=== PATIENT | female | born 1955 | race Caucasian/White ===

== ENCOUNTER → 2016-04-08 | Outpatient (CLI) | payer OTHER ==
[~2016-04-08] MED LIST: ACET-1256 PO; AMLO-110 PO; CHOL100010 PO; CHOL1TAB2 PO; CLX/20 PO; CLX40 PO; CYAN100T PO; CYAN1TAB18 PO; HYDR12.55 PO; KLN1X PO; KLN5X PO; LPT/20 PO; MECL1TAB42 PO; OYST500T47 PO
[2016-04-08 17:11] LABS: BASO % 0.4 %; BASO ABS # 0.03 K/uL (0-0.2); COMPLETE YES; EOS % 1.8 %; HEMATOCRIT 43.2 % (37-47); IG% 0.3 %; LYMPH % 29.4 %; LYMPH ABS # 2.35 K/uL (1.2-3.4); MEAN CELL VOLUME 86.6 fL (80-100); MEAN CORPUSCULAR HEMOGLOBIN 29.5 pg (25-34); MEAN PLATELET VOLUME 9.7 fL (7.4-10.4); MONO % 7.6 %; NEUT % 60.5 %; PLATELET COUNT 273 K/uL (130-400); RED BLOOD COUNT 4.99 M/uL (4.2-5.4); WHITE BLOOD COUNT 7.98 K/uL (4.8-10.8)
[2016-04-08 17:27] LABS: ALT/SGPT 28 U/L (12-78); AST/SGOT 15 U/L (15-37); BLOOD UREA NITROGEN 20 mg/dl (7-18); BUN/CREATININE RATIO 18.6 (10-20); CARBON DIOXIDE 29 mmol/L (21-32); CHLORIDE 105 mmol/L (98-107); GLUCOSE 120 mg/dl (70-99); POTASSIUM 3.8 mmol/L (3.5-5.1); SODIUM 143 mmol/L (136-145)
[2016-04-08 17:37] LABS: ALKALINE PHOSPHATASE 85 U/L (45-117)
[2016-04-08 18:32] LABS: LYME DISEASE AB IGG NEG (NEG); LYME DISEASE AB IGM NEG (NEG)
[2016-04-09 07:05] LABS: ESTIMATED AVERAGE GLUCOSE 131 mg/dl; HA1C FLAG Normal (Normal)
--- NOTE | 2016-04-15 09:39 | CODING QUERY MEDICAL NECESSITY ---
SUPPORTING DIAGNOSIS NEEDED Dr. Domingo, A supporting diagnosis is required for the test/procedure performed on this patient in order for us to be reimbursed by the patient's insurance. Please provide a supporting diagnosis for the following test/procedure listed below next to the test name along with your signature. *If there is no additional diagnosis for this patient that would support the following test/procedure please document that below next to the test/procedure. Test(s)/Procedure(s) that require a supporting diagnosis: * ([id number]) B12 VITAMIN LEVEL DIAGNOSIS: DATE OF SERVICE: 04/08/16 Provider Signature: Date: Thank you Mykel Rollins [facility] Information Management Once completed, please kindly fax back to [phone] For questions please call [phone]
== END | disposition home or self-care (01) ==
LOC: C.LABBC 14:18
PROVIDERS: ATTEND Internal Medicine Geriatric Medicine
DX: I10 Essential (primary) hypertension (principal); G62.9 Polyneuropathy, unspecified; F32.9 Major depressive disorder, single episode, unspecified; E78.5 Hyperlipidemia, unspecified; K76.0 Fatty (change of) liver, not elsewhere classified; E55.9 Vitamin D deficiency, unspecified; S32.010A Wedge compression fracture of first lumbar vertebra, initial encounter for closed fracture; M81.0 Age-related osteoporosis without current pathological fracture; E11.29 Type 2 diabetes mellitus with other diabetic kidney complication; I67.9 Cerebrovascular disease, unspecified; X58.XXXA Exposure to other specified factors, initial encounter; R26.9 Unspecified abnormalities of gait and mobility

== ENCOUNTER → 2016-05-07 | Outpatient (CLI) | payer OTHER ==
--- NOTE | 2016-05-07 16:18 | DIAGNOSTIC IMAGING REPORT ---
LEFT ANKLE MIN 3 VIEWS ROUTINE CLINICAL HISTORY: Left ankle pain trauma COMPARISON: None. DISCUSSION: Generalized soft tissue edema. Tiny avulsion tip distal fibula. Ankle mortise is aligned anatomically. IMPRESSION: Tiny avulsion tip distal fibula. Generalized soft tissue edema. Electronically signed by: Bijan Person M.D. 05/07/2016 4:16 PM Dictated Date/Time: 05/07/2016 4:15 PM
== END | disposition home or self-care (01) ==
LOC: C.RADBC 15:52
PROVIDERS: ATTEND Internal Medicine Geriatric Medicine
DX: S82.832A Other fracture of upper and lower end of left fibula, initial encounter for closed fracture (principal); X58.XXXA Exposure to other specified factors, initial encounter

== ENCOUNTER → 2016-08-11 | Outpatient (CLI) | payer OTHER ==
--- NOTE | 2016-08-12 12:58 | MAMMOGRAPHY REPORT ---
BILATERAL DIGITAL SCREENING MAMMOGRAM TOMOSYNTHESIS WITH CAD: 08/11/2016 CLINICAL HISTORY: Routine screening. Patient has no complaints. TECHNIQUE: Breast tomosynthesis in addition to standard 2D mammography was performed. Current study was also evaluated with a Computer Aided Detection (CAD) system. COMPARISON: Comparison is made to exams dated: 08/08/2015 mammogram, 01/23/2015 mammogram, 01/19/2014 mammogram, 12/26/2012 mammogram, 11/16/2011 mammogram, and 10/31/2010 mammogram - [facility]. BREAST COMPOSITION: There are scattered areas of fibroglandular density in both breasts. FINDINGS: There is expected focal architectural distortion and a central dystrophic calcification in the upper outer quadrant of the right breast, at the site of prior excisional biopsy. There is a s table focal asymmetry in the lower inner posterior left breast, fluctuating in size on prior mammogr ams but very similar in appearance to the 10/25/2009 exam, therefore likely benign. Scattered benig n-appearing calcifications. No new suspicious mass, architectural distortion or cluster of microcal cifications is seen. IMPRESSION: ACR BI-RADS CATEGORY 1: NEGATIVE There is no mammographic evidence of malignancy. A 1 year screening mammogram is recommended. The p atient will receive written notification of the results. Approximately 10% of breast cancers are not detected with mammography. A negative mammographic repor t should not delay biopsy if a clinically suggestive mass is present. Marylu Cross M.D. ay/:08/11/2016 16:42:41 Netsuite Developer: Celi TUBBS(Raven)(Kirsty)(JAIME), [facility] letter sent: Normal 1/2 BI-RADS Code: ACR BI-RADS Category 1: Negative
== END | disposition home or self-care (01) ==
LOC: C.MAMM 11:42
PROVIDERS: ATTEND Internal Medicine Geriatric Medicine
DX: Z12.31 Encounter for screening mammogram for malignant neoplasm of breast (principal)

== ENCOUNTER → 2016-08-13 | Outpatient (CLI) | payer OTHER ==
--- NOTE | 2016-08-13 15:19 | DIAGNOSTIC IMAGING REPORT ---
KUB CLINICAL HISTORY: Nausea and vomiting. COMPARISON STUDY: CT of the abdomen and pelvis April 03, 2014. FINDINGS: There are cholecystectomy clips. The bowel gas pattern is normal. Pelvic calcifications reflect phleboliths. There is a moderate amount of stool within the colon. IMPRESSION: No evidence of a bowel obstruction. Electronically signed by: Eyal Whitaker M.D. 08/13/2016 3:18 PM Dictated Date/Time: 08/13/2016 3:17 PM
--- NOTE | 2016-08-13 15:30 | DIAGNOSTIC IMAGING REPORT ---
CHEST 2 VIEWS ROUTINE HISTORY: Generalized ABDOMEN PAIN AND VOMITING COMPARISON: None. FINDINGS: The lungs are clear. Cardiac silhouette is normal in size. No pleural effusions. No pneumothorax. Cholecystectomy. Old compression deformity at L1. IMPRESSION: No acute process. Electronically signed by: Jean Orlando M.D. 08/13/2016 3:28 PM Dictated Date/Time: 08/13/2016 3:27 PM
[2016-08-13 17:23] LABS: BASO % 0.2 %; BASO ABS # 0.02 K/uL (0-0.2); COMPLETE YES; EOS % 1.5 %; HEMATOCRIT 44.5 % (37-47); IG% 0.1 %; LYMPH % 24.8 %; LYMPH ABS # 2.16 K/uL (1.2-3.4); MEAN CELL VOLUME 86.9 fL (80-100); MEAN CORPUSCULAR HEMOGLOBIN 29.5 pg (25-34); MEAN CORPUSCULAR HGB CONC 33.9 g/dl (32-36); MEAN PLATELET VOLUME 9.2 fL (7.4-10.4); NEUT % 67.4 %; PLATELET COUNT 299 K/uL (130-400); RED BLOOD COUNT 5.12 M/uL (4.2-5.4); WHITE BLOOD COUNT 8.71 K/uL (4.8-10.8)
[2016-08-13 17:26] LABS: URINE APPEARANCE TURBID (CLEAR); URINE BILIRUBIN NEG (NEG); URINE COLOR YELLOW; URINE NITRITE NEG (NEG); URINE PH 7.5 (4.5-7.5); URINE SPECIFIC GRAVITY 1.019 (1.000-1.030); UROBILINOGEN NEG (NEG)
[2016-08-13 17:29] LABS: MANUAL MICROSCOPIC REQUIRED? NO; REVIEW REQ? NO
[2016-08-13 17:44] LABS: ALT/SGPT 72 U/L (12-78); AMYLASE 52 U/L (25-115); AST/SGOT 29 U/L (15-37); BLOOD UREA NITROGEN 19 mg/dl (7-18); BUN/CREATININE RATIO 15.5 (10-20); CARBON DIOXIDE 31 mmol/L (21-32); CHLORIDE 107 mmol/L (98-107); GLUCOSE 125 mg/dl (70-99); POTASSIUM 3.5 mmol/L (3.5-5.1); SODIUM 144 mmol/L (136-145)
[2016-08-13 17:45] LABS: ALKALINE PHOSPHATASE 96 U/L (45-117)
--- NOTE | 2016-08-19 07:48 | CODING QUERY MEDICAL NECESSITY ---
CQSUPPORTING DIAGNOSIS NEEDED A supporting diagnosis is required for the test/procedure performed on this patient in order for us to be reimbursed by the patient's insurance. Please provide a supporting diagnosis for the following test/procedure listed below next to the test name along with your signature. *If there is no additional diagnosis for this patient that would support the following test/procedure please document that below next to the test/procedure. Test(s)/Procedure(s) that require a supporting diagnosis: DOS 08/13/16 URINE CULTURE TEST ORDERED BY RIP LÓPEZ Provider Signature: Date: Thank you Zabrina Valverde Health Information Management Once completed, please kindly fax back to [phone] For questions please call [phone]
== END | disposition home or self-care (01) ==
LOC: C.RADBC 14:37
PROVIDERS: ATTEND Physician Assistant
DX: R11.2 Nausea with vomiting, unspecified (principal); R50.9 Fever, unspecified

== ENCOUNTER 2016-09-11 18:15 | Emergency (ER) | payer OTHER ==
[~2016-09-11] VITALS: Ht 152.4 cm; Wt 80.0 kg
[~2016-09-11 18:15] MED LIST changes: -CHOL1TAB2 PO; -CLX40 PO; -CYAN100T PO; -CYAN1TAB18 PO; -HYDR12.55 PO; -KLN1X PO; -MECL1TAB42 PO
[2016-09-11 18:35] VITALS: Ht 152.4 cm; Wt 80.0 kg
[2016-09-11 18:51] VITALS: O2SAT 97
[2016-09-11] MEDS ORDERED: SODIUM CHLORIDE 0.9% 1000ML 1,000 ML IV STA (19:03)
[2016-09-11 19:12] LABS: BASO % 0.2 %; BASO ABS # 0.02 K/uL (0-0.2); COMPLETE YES; EOS % 1.2 %; HEMATOCRIT 46.1 % (37-47); IG% 0.3 %; LYMPH % 29.7 %; LYMPH ABS # 2.63 K/uL (1.2-3.4); MEAN CELL VOLUME 86.5 fL (80-100); MEAN CORPUSCULAR HEMOGLOBIN 28.9 pg (25-34); MEAN CORPUSCULAR HGB CONC 33.4 g/dl (32-36); MEAN PLATELET VOLUME 8.9 fL (7.4-10.4); MONO % 6.8 %; NEUT % 61.8 %; PLATELET COUNT 275 K/uL (130-400); RED BLOOD COUNT 5.33 M/uL (4.2-5.4); WHITE BLOOD COUNT 8.85 K/uL (4.8-10.8)
[2016-09-11 19:21] LABS: PROTHROMBIN TIME (PATIENT) 10.9 SECONDS (9.0-12.0)
--- NOTE | 2016-09-11 19:21 | DIAGNOSTIC IMAGING REPORT ---
CHEST ONE VIEW PORTABLE CLINICAL HISTORY: Left frontal/temporal pain/spasm. Febrile COMPARISON STUDY: No previous studies for comparison. FINDINGS: The bones soft tissues and hemidiaphragms are normal. The cardiomediastinal silhouette is normal. The lungs are clear. The pulmonary vasculature is normal. IMPRESSION: Negative chest. Electronically signed by: Bijan Person M.D. 09/11/2016 7:19 PM Dictated Date/Time: 09/11/2016 7:19 PM
--- NOTE | 2016-09-11 19:24 | DIAGNOSTIC IMAGING REPORT ---
HEAD CT NONCONTRAST CT DOSE: 537.48 mGy.cm HISTORY: Mental status change Left frontal/temporal pain/spasm. Febrile TECHNIQUE: Multiaxial CT images of the head were performed without the use of intravenous contrast. Comparison: None. Findings: The paranasal sinuses and mastoid air cells are clear. The calvarium and skull base are intact. The ventricles and sulci are within normal limits. There is no mass, hematoma, midline shift, or acute infarct. Impression: No acute intracranial abnormality. Electronically signed by: Bijan Person M.D. 09/11/2016 7:22 PM Dictated Date/Time: 09/11/2016 7:22 PM
[2016-09-11 19:26] LABS: URINE APPEARANCE CLEAR (CLEAR); URINE BILIRUBIN NEG (NEG); URINE COLOR YELLOW; URINE EPITHELIAL CELL AUTO >30 /lpf (0-5); URINE NITRITE NEG (NEG); URINE PH 7.5 (4.5-7.5); URINE SPECIFIC GRAVITY 1.019 (1.000-1.030); UROBILINOGEN NEG (NEG); ZZUR CULT IF INDIC CLEAN CATCH YES
[2016-09-11 19:30] LABS: ALT/SGPT 44 U/L (12-78); BLOOD UREA NITROGEN 18 mg/dl (7-18); BUN/CREATININE RATIO 14.7 (10-20); CALCIUM 9.2 mg/dl (8.5-10.1); CARBON DIOXIDE 30 mmol/L (21-32); CHLORIDE 104 mmol/L (98-107); GLUCOSE 122 mg/dl (70-99); MAGNESIUM 2.4 mg/dl (1.8-2.4); POTASSIUM 3.4 mmol/L (3.5-5.1); SODIUM 141 mmol/L (136-145)
[2016-09-11 19:33] LABS: MANUAL MICROSCOPIC REQUIRED? NO; REVIEW REQ? YES; SULFASALICYLIC ACID NEG (NEG)
[2016-09-11 19:39] LABS: ALB/GLOB RATIO 1.1 (0.9-2); ALKALINE PHOSPHATASE 85 U/L (45-117); AST/SGOT 22 U/L (15-37)
[2016-09-11 20:04] LABS: LYME DISEASE AB IGG NEG (NEG); LYME DISEASE AB IGM NEG (NEG)
[2016-09-11] MEDS ORDERED: KLN1X PO (20:23)
[2016-09-11] MEDS ORDERED: HYDR12.55 PO (20:23)
[2016-09-11] MEDS ORDERED: CHOL1TAB2 PO (20:23)
[2016-09-11] MEDS ORDERED: CYAN100T PO (20:23)
[2016-09-11] MEDS ORDERED: CLX40 PO (20:23)
[2016-09-11 20:46] VITALS: TEMP 37.2; O2SAT 94
--- NOTE | 2016-09-11 21:38 | EMERGENCY ROOM VISIT NOTE ---
ED Visit Note First contact with patient: 18:50 I have personally seen and evaluated the patient with the physician assistant chief of police. I agree with the diagnostic/management decisions and have personally been involved in these decisions and agree with the diagnosis.
[2016-09-11 22:00] VITALS: PULSE 98
[2016-09-11] MEDS ORDERED: CIPROFLOXACIN HCL 0.3% OP SOLN 2.5 ML BTL OP STA (22:02)
--- NOTE | 2016-09-11 22:02 | EMERGENCY ROOM VISIT NOTE ---
History First contact with patient: 18:50 Chief Complaint: HEAD PAIN Stated Complaint: PAINFUL SPASMS ON LT SIDE OF HEAD, FOREHEAD PAIN History of Present Illness The patient is a 61 year old female who presents to the Emergency Room via taxi with complaints of "painful spasms on left side of head, forehead pain". The patient states that yesterday morning, she developed pain in the left side of her head near the area for for head and left temporal region. She notes that this will come in spasms, and last a few seconds. She rates the pain as a 7/ 10. She is unable to count number spasm she has had since the initial event. She's never had this in the past. 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 She notes minimal nausea and vomiting each morning but they go away. She denies any chest pain, shortness of breath, neck pain, recent medicine changes, chills. She states that she feels slightly warm, but no fevers. She was told that she had a slight fever on her last doctor's visit. Review of Systems A complete 10-point Review of Systems was discussed with the patient, with pertinent positives and negatives listed in the History of Present Illness. All remaining Review of Systems questions can be considered negative unless otherwise specified. Past Medical/Surgical History Medical Problems: (1) Asthma, Unspecified (2) Cholelith W Cholecys Nec (3) Cholelithiasis Nos (4) Diab Addie Wo Compl, Type Ii Or Unspec Type, Not Uncntrld (5) Diverticulosis Colon (W/O Ment Of Hemorrhage) (6) Hypertension Nos Social History Smoking Status: Never Smoker Alcohol Use: none Drug Use: none Marital Status: single Housing Status: lives alone Occupation Status: disabled Current/Historical Medications Scheduled Amlodipine (Norvasc), 5 MG PO QAM Atorvastatin (Atorvastatin Calcium), 20 MG PO HS Cholecalciferol (Vitamin D-3), 1,000 UNIT PO QAM Citalopram (Citalopram Hydrobromide), 40 MG PO QAM Clonazepam (Clonazepam), 1 MG PO HS Cyanocobalamin (Vitamin B-12), Unknown Dose PO DAILY Hydrochlorothiazide (Hydrochlorothiazide), 12.5 MG PO QAM Oyster Shell (Calcium), 500 MG PO HS Scheduled PRN Acetaminophen (Tylenol), 500 MG PO BID PRN for Pain Allergies Coded Allergies: Fluoride (Verified Allergy, Unknown, 09/11/16) Codeine (Verified Adverse Reaction, Unknown, N&V, 09/11/16) Uncoded Allergies: [id number] (Allergy, Unknown, N V, 05/27/15) [id number] (Allergy, Unknown, 05/27/15) Physical Exam Vital Signs Date Time Temp Pulse Resp B/P (MAP) Pulse Ox O2 Delivery O2 Flow Rate FiO2 09/11/16 22:18 167/94 09/11/16 22:00 98 21 09/11/16 21:30 101 21 09/11/16 21:00 95 19 09/11/16 20:46 37.2 94 20 162/87 94 Room Air 09/11/16 19:15 37.5 104 20 110/67 97 Room Air 09/11/16 19:06 101 09/11/16 18:51 97 Room Air 09/11/16 18:35 38.2 102 20 192/96 98 Room Air Physical Exam VITAL SIGNS - Vital signs and nursing notes were reviewed. Afebrile, hypertensive at 192/96, tachycardic at a rate of 102 bpm, was saturating on room air 98%. GENERAL -61-year-old female appearing her stated age who is in no acute distress. Communicates well with provider and answers questions appropriately. SKIN - Without rashes. No petechial rashes. HEAD - NC/AT. EYES - PERRL with EOMI bilaterally. The left eye is shut, with left-sided facial droop. This is consistent with past medical history of Leary's palsy. Sclera anicteric. Palpebral conjunctiva pink and moist with no injection noted. EARS - No deformities of external structures noted on gross examination bilaterally. No pain elicited with palpation of the tragus bilaterally. External auditory canals without discharge or otorrhea. Tympanic membranes pearly mireles without retraction or bulging. No fluid or purulent material visualized behind the TM. Handle of malleus, umbo, cone of light, pars tensa/ flaccid all easily visualized. NOSE - Midline and without cyanosis. No epistaxis or purulent drainage noted. Septum midline without deviation or septal hematoma noted. MOUTH/OROPHARYNX - Without perioral cyanosis. Buccal mucosa pink and moist and without leukoplakia. The posterior pharynx is unremarkable NECK - Neck with FROM. Supple to palpation. No meningismus LUNGS - Chest wall symmetric without accessory muscle use, intercostals retractions, or central cyanosis. Normal vesicular breath sounds CTA B/L. No wheezes, rales, or rhonchi appreciated. CARDIAC - RRR with S1/S2. No murmur, rubs, or gallops appreciated. ABDOMEN - Abdominal contour without pulsations or visible masses. BS normoactive all four quadrants. No tenderness, palpable masses, hepatosplenomegaly, or ascites noted. EXTREMITIES - No clubbing or peripheral cyanosis. No pretibial edema present. + 5/5 strength noted in UE/LE bilaterally. NEUROLOGIC - Cranial nerves II through XII grossly intact, other than a left seventh nerve palsy. Sensory intact to light touch throughout. PSYCH - A&O Pt is very pleasant and interacts well with examiner. An Automated Tonometer was utilized to obtain bilateral orbital pressures. The pressures in the LEFT eye were found to be 23. The pressures in the RIGHT eye were found to be 12. Patient tolerated the procedure well and no complications were met. Slit Lamp Examination was performed of the left eye(s). Alcaine drops were applied to the affected eye(s) for proper anesthetization. The affected eye(s) were stained with Fluorescein stain to precipitate adequate visualization of any conjunctival/scleral excoriations or ulcers. The patient's face was comfortably rested on the chin guard of the slit lamp apparatus. The lights were dimmed and the affected eye(s) were thoroughly examined under microscopy using the blue light. A small amount of uptake was present on the medial aspect in the vertical plane that was linear in nature. Additionally, the eye(s ) were examined under microscopy using the regular light. Negative Martnia sign. No herpetic lesion within the eye. Close examination revealed no emergent process. Patient tolerated the procedure well and no complications were met. Medical Decision & Procedures ER Provider Diagnostic Interpretation: CHEST ONE VIEW PORTABLE CLINICAL HISTORY: Left frontal/temporal pain/spasm. Febrile COMPARISON STUDY: No previous studies for comparison. FINDINGS: The bones soft tissues and hemidiaphragms are normal. The cardiomediastinal silhouette is normal. The lungs are clear. The pulmonary vasculature is normal. IMPRESSION: Negative chest. Electronically signed by: Bijan Person M.D. 09/11/2016 7:19 PM Dictated Date/Time: 09/11/2016 7:[address] CT DOSE: 537.48 mGy.cm HISTORY: Mental status change Left frontal/temporal pain/spasm. Febrile TECHNIQUE: Multiaxial CT images of the head were performed without the use of intravenous contrast. Comparison: None. Findings: The paranasal sinuses and mastoid air cells are clear. The calvarium and skull base are intact. The ventricles and sulci are within normal limits. There is no mass, hematoma, midline shift, or acute infarct. Impression: No acute intracranial abnormality. Electronically signed by: Bijan Person M.D. 09/11/2016 7:22 PM Dictated Date/Time: 09/11/2016 7:22 PM Laboratory Results 09/11/16 18:55 Red Blood Count 5.33, Mean Corpuscular Volume 86.5, Mean Corpuscular Hemoglobin 28.9, Mean Corpuscular Hemoglobin Concent 33.4, Mean Platelet Volume 8.9, Neutrophils (%) (Auto) 61.8, Lymphocytes (%) (Auto) 29.7, Monocytes (%) (Auto) 6.8, Eosinophils (%) (Auto) 1.2, Basophils (%) (Auto) 0.2, Neutrophils # (Auto) 5.46, Lymphocytes # (Auto) 2.63, Monocytes # (Auto) 0.60, Eosinophils # (Auto) 0.11, Basophils # (Auto) 0.02 09/11/16 18:55 Test 09/11/16 18:55 09/11/16 19:01 09/11/16 19:02 White Blood Count 8.85 K/uL (4.8-10.8) Red Blood Count 5.33 M/uL (4.2-5.4) Hemoglobin 15.4 g/dL (12.0-16.0) Hematocrit 46.1 % (37-47) Mean Corpuscular Volume 86.5 fL (80-100) Mean Corpuscular Hemoglobin 28.9 pg (25-34) Mean Corpuscular Hemoglobin Concent 33.4 g/dl (32-36) Platelet Count 275 K/uL (130-400) Mean Platelet Volume 8.9 fL (7.4-10.4) Neutrophils (%) (Auto) 61.8 % Lymphocytes (%) (Auto) 29.7 % Monocytes (%) (Auto) 6.8 % Eosinophils (%) (Auto) 1.2 % Basophils (%) (Auto) 0.2 % Neutrophils # (Auto) 5.46 K/uL (1.4-6.5) Lymphocytes # (Auto) 2.63 K/uL (1.2-3.4) Monocytes # (Auto) 0.60 K/uL (0.11-0.59) Eosinophils # (Auto) 0.11 K/uL (0-0.5) Basophils # (Auto) 0.02 K/uL (0-0.2) RDW Standard Deviation 40.9 fL (36.4-46.3) RDW Coefficient of Variation 12.8 % (11.5-14.5) Immature Granulocyte % (Auto) 0.3 % Immature Granulocyte # (Auto) 0.03 K/uL (0.00-0.02) Erythrocyte Sedimentation Rate 9 mm/hr (0-21) Prothrombin Time 10.9 SECONDS (9.0-12.0) Prothromb Time International Ratio 1.0 (0.9-1.1) Activated Partial Thromboplast Time 26.9 SECONDS (21.0-31.0) Partial Thromboplastin Ratio 1.0 Anion Gap 7.0 mmol/L (3-11) Est Creatinine Clear Calc Drug Dose 46.1 ml/min Estimated GFR () 56.5 Estimated GFR (Non- 48.7 BUN/Creatinine Ratio 14.7 (10-20) Calcium Level 9.2 mg/dl (8.5-10.1) Magnesium Level 2.4 mg/dl (1.8-2.4) Total Bilirubin 0.2 mg/dl (0.2-1) Aspartate Amino Transf (AST/SGOT) 22 U/L (15-37) Alanine Aminotransferase (ALT/SGPT) 44 U/L (12-78) Alkaline Phosphatase 85 U/L (45-117) Total Creatine Kinase 79 U/L (26-192) Creatine Kinase MB < 0.5 ng/ml (0.5-3.6) Creatine Kinase MB Ratio (0-3.0) C-Reactive Protein 0.70 mg/dl (0-0.29) Total Protein 7.6 gm/dl (6.4-8.2) Albumin 4.0 gm/dl (3.4-5.0) Globulin 3.6 gm/dl (2.5-4.0) Albumin/Globulin Ratio 1.1 (0.9-2) Thyroid Stimulating Hormone (TSH) 1.990 uIu/ml (0.300-4.500) Lyme Disease IgG Antibody NEG (NEG) Lyme Disease IgM Antibody NEG (NEG) Urine Color YELLOW Urine Appearance CLEAR (CLEAR) Urine pH 7.5 (4.5-7.5) Urine Specific [place] 1.019 (1.000-1.030) Urine Protein NEG (NEG) Urine Glucose (UA) NEG (NEG) Urine Ketones NEG (NEG) Urine Occult Blood NEG (NEG) Urine Nitrite NEG (NEG) Urine Bilirubin NEG (NEG) Urine Urobilinogen NEG (NEG) Urine Leukocyte Esterase MODERATE (NEG) Urine WBC (Auto) 10-30 /hpf (0-5) Urine RBC (Auto) 0-4 /hpf (0-4) Urine Hyaline Casts (Auto) 0 /lpf (0-5) Urine Epithelial Cells (Auto) >30 /lpf (0-5) Urine Bacteria (Auto) NEG (NEG) Urine Renal Epithelial Cells 0-5 /lpf (0-5) Bedside Lactic Acid Venous 0.97 mmol/L (0.90-1.70) Medications Administered Medications (Trade) Dose Ordered Sig/Mo Route Start Time Stop Time Status Last Admin Dose Admin Sodium Chloride 1,000 ml @ 200 mls/hr Q5H STAT IV 09/11/16 19:03 09/12/16 00:02 09/11/16 19:03 200 MLS/HR Ciprofloxacin HCl (Ciprofloxacin 0.3% Op Soln) 2 drops NOW STAT OP 09/11/16 22:02 09/11/16 22:04 DC 09/11/16 22:15 2 DROPS Medical Decision Patient was seen and evaluated as above. After obtaining a thorough history and physical examination IV access was initiated and the above workup was performed. Patient is a healthy-appearing, but is afebrile upon presentation, hypertensive and tachycardic. Blood cultures were drawn and point care lactic acid was found to be normal. I suspect patient's hypertensive state is secondary to her pain. I personally reviewed her medication list. She presents to us today with pain in the left side of the forehead/temporal region and left eye. On examination her left eye does show a small amount of drainage. No evidence of herpetic lesion. CT scan of the head was obtained and found to be negative. An extensive workup was performed via blood work and also found to be relatively negative. CBC reveals no concerning leukocytosis or anemia. ESR normal at 9. INR and PT PTT are normal. Potassium slightly low at 3.4, random glucose at 122, [id number] lactic acid at 0.97, C- reactive protein high at 0.7. TSH within normal limits. Urine is positive for leukocytes and white blood cells, but believed to be contaminated with epithelial cells. Lyme disease negative. CT the head and chest x-ray negative. I suspect the patient is likely experiencing other mild conjunctivitis, with blepharitis and do not suspect temporal arteritis in this case. She also may be experiencing a headache. I do not suspect meningitis, sepsis however blood cultures are pending. The patient was also thoroughly evaluated by my attending. This was discussed extensively with him. At this time it was decided to place the patient on Ciloxan eyedrops, and the patient prefers to be discharged rather than staying in the hospital. Due to this is reasonable. She was given a voucher to ride home with a taxi. She was given Ciloxan eyedrops. She is to follow-up with her neurologist, family doctor and is due for an eye exam which she is aware of. She was educated upon worrisome symptoms which to return, had questions as read discharge, and was discharged home in good condition. In the evaluation and treatment of this patient, the following differential diagnoses were considered: Concussion, Contrecoup Injury, Brain Tumor, Depression, Encephalitis, Hypothyroidism, Meningitis, CVA, TIA, Migraine, Cluster Headache, Intracranial Abnormality, Intracranial Hemorrhage, Subdural Hematoma, Subarachnoid Hemorrhage, Hydrocephalus, Corneal Abrasion, Conjunctivitis, Eye Contusion, Globe Injury, Orbital Floor Injury (Blowout Fracture), Corneal Ulcer, Keratitis, Herpes Zoster Opthalmic, Blepharitis, Orbital Cellulitis, Iritis, Scleritis/Episcleritis, Uveitis, Temporal Arteritis , Subconjunctival Hemorrhage. Impression Primary Impression: Head pain Additional Impressions: Left eye pain Hypokalemia Departure Information Dispostion Home / Self-Care Condition GOOD Referrals Yann Domingo M.D. (PCP) Luis Enrique Montgomery D.O. Patient Instructions My [facility] Additional Instructions You have been treated in the Emergency Department today for your left eye pain, and left forehead pain. You have been prescribed Ciloxan eye drops. Instill 1 to 2 drops into the conjunctival sac every 2 hours while awake for 2 days and 1 to 2 drops every 4 hours while awake for the next 5 days For pain control, you can use the following [id number] medicines (if >12 yo): - Regular strength (325mg/tab) Tylenol (acetaminophen) 2 tabs every 4-6 hours as needed. Do not exceed 12 tablets in a 24 hour period. Avoid taking more than 3 grams (3000 mg) of Tylenol per day. This includes any other sources of acetaminophen you may take on a regular basis. - Regular strength (200 mg/tab) Advil (ibuprofen) 1-2 tabs every 4-6 hours as needed. Do not exceed a dose of 3200 mg per day. You should relax in a quiet, dark place for the rest of the day. You should wear sunglasses while outside for the next few days until your eyes are not as sensitive to the light. You should schedule a follow-up appointment as soon as possible with your Primary Care Provider or established Eye Doctor (Blow Molding Machine Tender) for further evaluation and treatment of your eye pain/head pain. The number for the eye doctor as listed above (Dr. Montgomery) your left eye pressure was slightly high. Please discuss this with the eye doctor.. Please also call your neurologist to schedule follow-up. Please watch for a rash on your forehead as we discussed. Return to the Emergency Department if your current symptoms worsen despite treatment course outlined above, or if you develop any of the following symptoms : intractable pain, visual disturbances, loss of vision, increased redness, swelling, drainage, or if you develop a fever. Please return to the emergency department with any new/concerning symptoms. Thank you for your time. Problem Qualifiers
[2016-09-11 22:18] VITALS: BP 167/94
[2016-11-26] MEDS ORDERED: CYAN1TAB18 PO (16:02)
== END 2016-09-11 22:20 | disposition home or self-care (01) ==
LOC: C.EDB 18:16
DX: R51 Headache (principal); H57.12 Ocular pain, left eye; E87.6 Hypokalemia; J45.909 Unspecified asthma, uncomplicated; E11.9 Type 2 diabetes mellitus without complications; I10 Essential (primary) hypertension; Z79.899 Other long term (current) drug therapy

== ENCOUNTER → 2016-09-17 | Outpatient (CLI) | payer OTHER ==
[~2016-09-17] MED LIST changes: -CHOL100010 PO; +CHOL1TAB2 PO; -CLX/20 PO; +CLX40 PO; +CYAN100T PO; +HYDR12.55 PO; +KLN1X PO; -KLN5X PO
[2016-09-17 17:36] LABS: LYME DISEASE AB IGG NEG (NEG); LYME DISEASE AB IGM NEG (NEG)
== END | disposition home or self-care (01) ==
LOC: C.LABBC 14:09
PROVIDERS: ATTEND Psychiatry & Neurology Neurology
DX: G51.3 Clonic hemifacial spasm (principal)

== ENCOUNTER → 2016-10-08 | Outpatient (CLI) | payer OTHER ==
[~2016-10-08] MED LIST changes: +CYAN1TAB18 PO; +MECL1TAB42 PO
[2016-10-08 13:23] LABS: BLOOD UREA NITROGEN 21 mg/dl (7-18)
== END ==
LOC: C.LAB 12:34
PROVIDERS: ATTEND Internal Medicine Geriatric Medicine
DX: E11.9 Type 2 diabetes mellitus without complications (principal)

== ENCOUNTER → 2016-10-12 | Outpatient (CLI) | payer OTHER ==
[~2016-10-12] MED LIST changes: +GADAVIST IV PRN
--- NOTE | 2016-10-12 11:39 | DIAGNOSTIC IMAGING REPORT ---
ABDOMEN COMBO CLINICAL HISTORY: Pancreatic cyst. COMPARISON STUDY: 11/01/2015, CT dated 04/03/2014, 2013, an 2012.. TECHNIQUE: MRI of the abdomen is performed transverse T1 and T2-weighted sequences in the axial and coronal planes. Contrast enhanced sequences were acquired following the IV administration of 12.5. FINDINGS: Lower chest: No pleural effusion is identified. The heart is normal in size. Liver: Mild fatty infiltration. Gallbladder: Surgically absent Spleen: Normal in size and signal intensity. Pancreas: Moderately compromised study due to patient respiratory and somatic motion. There appears to be slight inhomogeneity of the cystic lesion of the pancreatic head. This is felt to be related to motion artifact with signal considered uniform on the coronal images. Maximum dimension currently is 1.6 cm unchanged from the prior exam. No significant postcontrast enhancement within limitations of patient motion. No new or interval findings are present. Adrenal glands: Unremarkable. Kidneys: Small left renal cyst unchanged. No evidence for hydronephrosis. No new or interval finding. Bowel: Visualized portions of the small bowel and colon show no evidence of obstruction. Peritoneum: There is no abdominal ascites. Lymphadenopathy: None. Skeletal structures: Visualized skeletal structures times are normal marrow signal intensity. IMPRESSION: 1. Stable cystic lesion of the pancreas with no change compared to multiple prior studies. 2. No evidence for a new, interval, or progressive process. 3. Mild fatty infiltration of liver considered stable. 4. Differential considerations are unchanged compared to the prior exam The above report was generated using voice recognition software. It may contain grammatical, syntax or spelling errors. Electronically signed by: Bijan Person M.D. 10/12/2016 11:38 AM Dictated Date/Time: 10/12/2016 11:29 AM
== END | disposition home or self-care (01) ==
LOC: C.MRIBC 09:37
PROVIDERS: ATTEND Internal Medicine Geriatric Medicine
DX: K86.2 Cyst of pancreas (principal)

== ENCOUNTER 2016-11-20 11:25 | Emergency (ER) | payer OTHER ==
[~2016-11-20] VITALS: Ht 152.4 cm; Wt 80.0 kg
[~2016-11-20 11:25] MED LIST changes: -CYAN1TAB18 PO; -GADAVIST IV PRN; -MECL1TAB42 PO
[2016-11-20 11:29] VITALS: TEMP 37.1; Ht 152.4 cm; Wt 80.0 kg
[2016-11-20] MEDS ORDERED: SODIUM CHLORIDE 0.9% 500ML 500 ML IV STA (11:58)
[2016-11-20] MEDS ORDERED: MECLIZINE HCL 25 MG TAB PO STA (11:58)
[2016-11-20] MEDS ORDERED: ONDANSETRON INJ 2 MG/ML 2 ML VIAL IV STA (11:58)
[2016-11-20 12:04] LABS: BASO % 0.3 %; BASO ABS # 0.02 K/uL (0-0.2); COMPLETE YES; EOS % 1.3 %; HEMATOCRIT 46.4 % (37-47); IG% 0.4 %; LYMPH ABS # 2.01 K/uL (1.2-3.4); MEAN CELL VOLUME 85.3 fL (80-100); MEAN CORPUSCULAR HGB CONC 35.1 g/dl (32-36); MEAN PLATELET VOLUME 8.9 fL (7.4-10.4); MONO % 5.9 %; NEUT % 66.1 %; PLATELET COUNT 267 K/uL (130-400); RED BLOOD COUNT 5.44 M/uL (4.2-5.4); WHITE BLOOD COUNT 7.74 K/uL (4.8-10.8)
--- NOTE | 2016-11-20 12:04 | EMERGENCY ROOM VISIT NOTE ---
History Report prepared by Nellie: Tamiko Joiner Under the Supervision of: Dr. Piero Dillon M.D. First contact with patient: 11:50 Chief Complaint: DIZZY Stated Complaint: DIZZINESS, HEAD AND NECK PAIN, HAVING TROUBLE WALK History of Present Illness The patient is a 61 year old female who presents to the Emergency Room with complaints of persistent dizziness that began around 0800. The patient states that over the past month she has been experiencing intermittent headaches and neck pain with movement of her head. She states that this morning she woke up doing her normal routine and noticed that she was becoming dizzy with bending over. The patient states that when she walked out to get her mail, her dizziness worsened and had difficulty ambulating, noting that she was walking slower than normal. She states that she was [place] but states that her symptoms persisted. The patient states that she consulted her PCP and was told to come to the emergency department due to her symptoms. 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 The patient denies any nausea. Source of History: patient Onset: 0800 Position: other (global) Quality: other (dizziness) Timing: other (persistent) Associated Symptoms: + headache, + neck pain, No nausea Note: Associated Symptoms: walking slow, difficulty ambulating Review of Systems See HPI for pertinent positives & negatives. A total of 10 systems reviewed and were otherwise negative. Past Medical & Surgical Medical Problems: (1) Asthma, Unspecified (2) Cholelith W Cholecys Nec (3) Cholelithiasis Nos (4) Diab Addie Wo Compl, Type Ii Or Unspec Type, Not Uncntrld (5) Diverticulosis Colon (W/O Ment Of Hemorrhage) (6) Hypertension Nos Social History Smoking Status: Never Smoker Alcohol Use: none Drug Use: none Marital Status: single Housing Status: lives alone Occupation Status: disabled Current/Historical Medications Scheduled Amlodipine (Norvasc), 5 MG PO QAM Atorvastatin (Atorvastatin Calcium), 20 MG PO HS Cholecalciferol (Vitamin D-3), 1,000 UNIT PO QAM Citalopram (Citalopram Hydrobromide), 40 MG PO QAM Cyanocobalamin (Vitamin B-12), Unknown Dose PO DAILY Hydrochlorothiazide (Hydrochlorothiazide), 12.5 MG PO QAM Oyster Shell (Calcium), 500 MG PO HS Scheduled PRN Acetaminophen (Tylenol), 500 MG PO BID PRN for Pain Meclizine Hcl (Meclizine Hcl), 1 TAB PO TID PRN for Dizziness or Vertigo Allergies Coded Allergies: Fluoride (Verified Allergy, Unknown, 09/11/16) Codeine (Verified Adverse Reaction, Unknown, N&V, 09/11/16) Uncoded Allergies: [id number] (Allergy, Unknown, N V, 05/27/15) [id number] (Allergy, Unknown, 05/27/15) Physical Exam Vital Signs Date Time Temp Pulse Resp B/P (MAP) Pulse Ox O2 Delivery O2 Flow Rate FiO2 11/20/16 13:26 100 20 176/95 95 11/20/16 12:28 103 11/20/16 12:27 96 Room Air 11/20/16 12:27 96 Room Air 11/20/16 12:24 93 20 162/93 97 169/97 107 171/91 11/20/16 11:29 37.1 110 20 190/78 96 Room Air Physical Exam GENERAL: Patient is a healthy-appearing well-nourished female HEAD: Normocephalic atraumatic EYES: Ocular movements intact pupils equal and react to light OROPHARYNX mucous membranes are moist no exudates present no erythema or edema present NECK: Supple no nuchal rigidity CHEST: Good equal expansion LUNGS: Clear and equal to auscultation CARDIAC: Normal S1 and S2 ABDOMEN: Soft nontender no guarding BACK: No CVA tenderness EXTREMITIES: No pain upon palpation normal muscle strength in all groups no clubbing cyanosis or edema NEURO: Left sided facial droop that is normal. Patient is following commands and answering questions appropriately. Alert and oriented x3 Medical Decision & Procedures ER Provider Diagnostic Interpretation: Radiology results as stated below per my review and radiologist interpretation: CHEST ONE VIEW PORTABLE CLINICAL HISTORY: Dizziness. Head pain. Neck pain. COMPARISON STUDY: 09/11/2016 FINDINGS: The cardiac and mediastinal contours are normal. There is no evidence of focal pulmonary consolidation. There is no evidence of failure. No pleural effusions are visualized.[ IMPRESSION: No active disease in the chest. Electronically signed by: Negrito Hawkins M.D. 11/20/2016 12:16 PM Dictated Date/Time: 11/20/2016 12:16 PM HEAD WITHOUT CONTRAST (CT) CLINICAL HISTORY: 61 years-old Female presenting with Pt c/o dizziness. TECHNIQUE: Multidetector CT imaging of the head was performed without the use of intravenous contrast. IV contrast: None. A dose lowering technique was used consistent with the principles of ALARA (as low as reasonably achievable). COMPARISON: 09/11/2016. CT DOSE (mGy.cm): The estimated cumulative dose is 537.48 mGy.cm. 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 Ventricles and sulci normal in size. Brain parenchyma normal in appearance with preserved mireles-white differentiation. No mass effect or midline shift. No hemorrhage or acute territorial infarct. No extra-axial fluid collection. Paranasal sinuses and mastoid air cells clear. Calvarium intact. IMPRESSION: 1. No acute intracranial pathology. Electronically signed by: Ricco Suarez M.D. 11/20/2016 12:48 PM Dictated Date/Time: 11/20/2016 12:46 PM Laboratory Results 11/20/16 11:41 Red Blood Count 5.44, Mean Corpuscular Volume 85.3, Mean Corpuscular Hemoglobin 30.0, Mean Corpuscular Hemoglobin Concent 35.1, Mean Platelet Volume 8.9, Neutrophils (%) (Auto) 66.1, Lymphocytes (%) (Auto) 26.0, Monocytes (%) (Auto) 5.9, Eosinophils (%) (Auto) 1.3, Basophils (%) (Auto) 0.3, Neutrophils # (Auto) 5.12, Lymphocytes # (Auto) 2.01, Monocytes # (Auto) 0.46, Eosinophils # (Auto) 0.10, Basophils # (Auto) 0.02 11/20/16 11:41 Test 11/20/16 11:41 11/20/16 12:22 11/20/16 13:15 White Blood Count 7.74 K/uL (4.8-10.8) Red Blood Count 5.44 M/uL (4.2-5.4) Hemoglobin 16.3 g/dL (12.0-16.0) Hematocrit 46.4 % (37-47) Mean Corpuscular Volume 85.3 fL (80-100) Mean Corpuscular Hemoglobin 30.0 pg (25-34) Mean Corpuscular Hemoglobin Concent 35.1 g/dl (32-36) Platelet Count 267 K/uL (130-400) Mean Platelet Volume 8.9 fL (7.4-10.4) Neutrophils (%) (Auto) 66.1 % Lymphocytes (%) (Auto) 26.0 % Monocytes (%) (Auto) 5.9 % Eosinophils (%) (Auto) 1.3 % Basophils (%) (Auto) 0.3 % Neutrophils # (Auto) 5.12 K/uL (1.4-6.5) Lymphocytes # (Auto) 2.01 K/uL (1.2-3.4) Monocytes # (Auto) 0.46 K/uL (0.11-0.59) Eosinophils # (Auto) 0.10 K/uL (0-0.5) Basophils # (Auto) 0.02 K/uL (0-0.2) RDW Standard Deviation 39.8 fL (36.4-46.3) RDW Coefficient of Variation 12.7 % (11.5-14.5) Immature Granulocyte % (Auto) 0.4 % Immature Granulocyte # (Auto) 0.03 K/uL (0.00-0.02) Anion Gap 5.0 mmol/L (3-11) Est Creatinine Clear Calc Drug Dose 50.3 ml/min Estimated GFR () 62.8 Estimated GFR (Non- 54.1 BUN/Creatinine Ratio 17.0 (10-20) Calcium Level 9.0 mg/dl (8.5-10.1) Total Bilirubin 0.4 mg/dl (0.2-1) Direct Bilirubin < 0.1 mg/dl (0-0.2) Aspartate Amino Transf (AST/SGOT) 17 U/L (15-37) Alanine Aminotransferase (ALT/SGPT) 30 U/L (12-78) Alkaline Phosphatase 102 U/L (45-117) Total Creatine Kinase 89 U/L (26-192) Creatine Kinase MB 1.0 ng/ml (0.5-3.6) Creatine Kinase MB Ratio 1.1 (0-3.0) Troponin I < 0.015 ng/ml (0-0.045) Total Protein 7.6 gm/dl (6.4-8.2) Albumin 3.8 gm/dl (3.4-5.0) Thyroid Stimulating Hormone (TSH) 0.976 uIu/ml (0.300-4.500) Bedside Glucose 99 mg/dl (70-90) Urine Color YELLOW Urine Appearance CLEAR (CLEAR) Urine pH 8.5 (4.5-7.5) Urine Specific [place] 1.015 (1.000-1.030) Urine Protein NEG (NEG) Urine Glucose (UA) NEG (NEG) Urine Ketones NEG (NEG) Urine Occult Blood NEG (NEG) Urine Nitrite NEG (NEG) Urine Bilirubin NEG (NEG) Urine Urobilinogen NEG (NEG) Urine Leukocyte Esterase TRACE (NEG) Urine WBC (Auto) 1-5 /hpf (0-5) Urine RBC (Auto) 0-4 /hpf (0-4) Urine Hyaline Casts (Auto) 0 /lpf (0-5) Urine Epithelial Cells (Auto) 0-5 /lpf (0-5) Urine Bacteria (Auto) NEG (NEG) Labs reviewed by ED physician. Medications Administered Medications (Trade) Dose Ordered Sig/Mo Route Start Time Stop Time Status Last Admin Dose Admin Sodium Chloride 500 ml @ 999 mls/hr Q31M STAT IV 11/20/16 11:58 11/20/16 12:28 DC 11/20/16 12:33 999 MLS/HR Ondansetron HCl (Zofran Inj) 4 mg NOW STAT IV 11/20/16 11:58 11/20/16 12:00 DC 11/20/16 12:32 4 MG Meclizine HCl (Antivert Tab) 25 mg NOW STAT PO 11/20/16 11:58 11/20/16 12:00 DC 11/20/16 12:32 25 MG ECG Indication: other (dizziness) Rate (beats per minute): 106 Rhythm: sinus tachycardia Findings: PVC, no acute ischemic change ED Course 1154: Past medical records reviewed. The patient was evaluated in room C9. A complete history and physical examination was performed. 1158: Ordered Antivert Tab 25 mg PO, Zofran Inj 4 mg IV, Sodium Chloride 500 ml @ 999 mls/hr IV. 1304: I reevaluated the patient and she is feeling much better. I discussed the exam findings with her and I discussed the treatment plan. She verbalized complete understanding and agreement. She is ready to go home shortly. Medical Decision Differential diagnosis: Etiologies such as benign positional vertigo, dehydration, hypovolemia, anemia, tumor, infection, hypoglycemia, electrolyte abnormalities, cardiac sources, intracerebral event, toxicologic, neurologic, as well as others were entertained. This is a 61-year-old female who presents emergency department complaining of vertigo. The dizziness tires with movement. It also appears to be related to the patient's movement. Based on this I do feel the patient is suffering from vertigo. She was sent for CAT scan of the head which did not show any acute process. Patient was given normal saline bolus along with meclizine. Repeat examination revealed much improvement patient's symptoms. I do believe that the patient as well as to be discharged home for follow-up with her primary care physician. Patient was in agreement with the treatment plan. Medication Reconcilliation Current Medication List: was personally reviewed by me Blood Pressure Screening Patient's blood pressure: Elevated blood pressure Blood pressure disposition: Referred to PCP Impression Primary Impression: Vertigo Scribe Attestation The scribe's documentation has been prepared under my direction and personally reviewed by me in its entirety. I confirm that the note above accurately reflects all work, treatment, procedures, and medical decision making performed by me. Departure Information Dispostion Home / Self-Care Prescriptions Meclizine Hcl (MECLIZINE HCL) 25 Mg Tab 1 TAB PO TID Y for Dizziness or Vertigo for 10 Days, #30 TAB Prov: Piero Dillon MD 11/20/16 Referrals Yann Domingo M.D. (PCP) Forms HOME CARE DOCUMENTATION FORM, IMPORTANT VISIT INFORMATION, School Instructions, Work Instructions Patient Instructions ED BPV Vertigo, Hypertension Dc, [facility] Additional Instructions You were found to have an elevated blood pressure today (>120 sytolic or >90 diastolic). Per medicare guidelines, you need to follow up with this blood pressure screening with your Primary Care Physician (PCP). For a new PCP call [phone]. You have been examined and treated today on an emergency basis only. This is not a substitute for, or an effort to provide, complete comprehensive medical care. It is impossible to recognize and treat all injuries or illnesses in a single emergency department visit. It is therefore important that you follow up closely with Dr Domingo. Call as soon as possible for an appointment. Thank you for your time and consideration. I look forward to speaking with you again soon. Please don't hesitate to call us if you have any questions.
--- NOTE | 2016-11-20 12:17 | DIAGNOSTIC IMAGING REPORT ---
CHEST ONE VIEW PORTABLE CLINICAL HISTORY: Dizziness. Head pain. Neck pain. COMPARISON STUDY: 09/11/2016 FINDINGS: The cardiac and mediastinal contours are normal. There is no evidence of focal pulmonary consolidation. There is no evidence of failure. No pleural effusions are visualized.[ IMPRESSION: No active disease in the chest. Electronically signed by: Negrito Hawkins M.D. 11/20/2016 12:16 PM Dictated Date/Time: 11/20/2016 12:16 PM
[2016-11-20 12:22] LABS: ALT/SGPT 30 U/L (12-78); AST/SGOT 17 U/L (15-37); BLOOD UREA NITROGEN 19 mg/dl (7-18); CARBON DIOXIDE 30 mmol/L (21-32); CHLORIDE 105 mmol/L (98-107); GLUCOSE 114 mg/dl (70-99); POTASSIUM 3.7 mmol/L (3.5-5.1); SODIUM 140 mmol/L (136-145)
[2016-11-20 12:27] VITALS: O2SAT 96
[2016-11-20 12:33] LABS: ALKALINE PHOSPHATASE 102 U/L (45-117); CKMB/CK RATIO 1.1 (0-3.0); THYROID STIMULATING HORMONE 0.976 uIu/ml (0.300-4.500)
--- NOTE | 2016-11-20 12:49 | DIAGNOSTIC IMAGING REPORT ---
HEAD WITHOUT CONTRAST (CT) CLINICAL HISTORY: 61 years-old Female presenting with Pt c/o dizziness. TECHNIQUE: Multidetector CT imaging of the head was performed without the use of intravenous contrast. IV contrast: None. A dose lowering technique was used consistent with the principles of ALARA (as low as reasonably achievable). COMPARISON: 09/11/2016. CT DOSE (mGy.cm): The estimated cumulative dose is 537.48 mGy.cm. 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 Ventricles and sulci normal in size. Brain parenchyma normal in appearance with preserved mireles-white differentiation. No mass effect or midline shift. No hemorrhage or acute territorial infarct. No extra-axial fluid collection. Paranasal sinuses and mastoid air cells clear. Calvarium intact. IMPRESSION: 1. No acute intracranial pathology. Electronically signed by: Ricco Suarez M.D. 11/20/2016 12:48 PM Dictated Date/Time: 11/20/2016 12:46 PM
[2016-11-20] MEDS ORDERED: MECL1TAB42 PO (13:10)
[2016-11-20 13:26] VITALS: BP 176/95; PULSE 100; O2SAT 95
[2016-11-20 13:33] LABS: URINE APPEARANCE CLEAR (CLEAR); URINE BILIRUBIN NEG (NEG); URINE COLOR YELLOW; URINE EPITHELIAL CELL AUTO 0-5 /lpf (0-5); URINE NITRITE NEG (NEG); URINE PH 8.5 (4.5-7.5); URINE SPECIFIC GRAVITY 1.015 (1.000-1.030); UROBILINOGEN NEG (NEG)
[2016-11-20 13:40] LABS: MANUAL MICROSCOPIC REQUIRED? NO; REVIEW REQ? NO
[2016-11-26] MEDS ORDERED: CYAN1TAB18 PO (16:02)
== END 2016-11-20 13:35 | disposition home or self-care (01) ==
LOC: C.EDB 11:27 → C.EDC 13:35
DX: R42 Dizziness and giddiness (principal); J45.909 Unspecified asthma, uncomplicated; E11.9 Type 2 diabetes mellitus without complications; I10 Essential (primary) hypertension; K57.30 Diverticulosis of large intestine without perforation or abscess without bleeding; K80.10 Calculus of gallbladder with chronic cholecystitis without obstruction; Z79.899 Other long term (current) drug therapy

== ENCOUNTER → 2016-12-28 | Day surgery (SDC) | payer OTHER ==
[2016-11-26 16:05] VITALS: Ht 152.4 cm; Wt 80.9 kg
[~2016-12-28] VITALS: Ht 152.4 cm; Wt 80.9 kg
[~2016-12-28] MED LIST changes: +500ML BSS 0.3ML EPI 1:1000PF IRRIG ONE; +ACETAMINOPHEN 325 MG TAB PO PRN; +AMVISC PLUS 0.8ML SYRINGE INT OCU ONE; +ATROPINE SULFATE 0.1 MG/ML 5ML SYR IV PRN; +BRIMONIDINE TART 0.2% OP SOLN PER DROP CHARGE ONE; +BSS FLUSH ONE; -CYAN100T PO; +CYAN1TAB18 PO; +ENDOCOAT 0.85ML SYRINGE INT OCU ONE; +EpHEDrine SULFATE INJ 50 MG/ML AMP IV PRN; +EpINEphrine INJ 1MG/ML AMP 1 MG/ML AMP ONE; -KLN1X PO; +LACTATED RINGER'S 1000ML 500 ML IV SCH; +LIDOCAINE 4% OP SOLN DROP CHARGE ONE; +LIDOCAINE 4% OP SOLN DROP CHARGE OPL SCH; +LIDOCAINE HCL 1% MPF 2 ML VIAL ONE; +MIDAZOLAM HCL 1 MG/ML 2ML VIAL ONE; +MOXIFLOXACIN OPH SOLN PER DROP CHARGE ONE; +POVIDONE-IODINE OP SOLN 30 ML BTL ONE; +PROPARACAINE 0.5% OP SOLN PER DROP CHARGE OPL SCH; +TOBRAMYCIN/DEXAMETHASONE OPH OINT PER APPLN CHARGE ONE
[2016-12-28] MEDS: PHENYLEPHRINE HCL 2.5% OP SOLN PER DROP CHARGE OPL SCH ×2 (07:50→07:56)
[2016-12-28] MEDS: TROPICAMIDE 1% OP SOLN PER DROP CHARGE OPL SCH ×2 (07:52→07:57)
[2016-12-28] MEDS: CYCLOPENTOLATE HCL 1% OP SOLN PER DROP CHARGE OPL SCH ×2 (07:53→07:58)
[2016-12-28] MEDS: KETOROLAC 0.5% OP SOLN PER DROP CHARGE OPL SCH ×2 (07:54→07:59)
[2016-12-28] MEDS: MOXIFLOXACIN OPH SOLN PER DROP CHARGE OPL SCH ×2 (07:55→08:05)
--- NOTE | 2016-12-28 08:24 | History & Physical Bridge - [place] ---
H&P Re-Evaluation Bridge Note: I have examined the patient, reviewed the History & Physical and in the interval since the performance of the History & Physical I have noted the following changes of clinical significance: No changes noted
--- NOTE | 2016-12-28 09:18 | Discharge Instructions-SurgCtr ---
Discharge Instructions Date of Service Dec 28, 2016. Visit Reason for Visit: Cataract Left Eye Discharge Discharge Diagnosis / Problem: cataract left eye Discharge Goals Goal(s): Improve function Medications Stopped Medications Name(s): Only took blood pressure medication. Activity Recommendations Activity Limitations: per Instructions/Follow-up section Lifting Limitations: no more than 5 pounds Anesthesia . Post Anesthesia Instructions: If you have had General Anesthesia or IV Sedation: * Do not drive today. * Resume driving when surgeon permits. * Do not make important decisions or sign legal documents today. * Call surgeon for: 1. Temperature elevations greater than 101 degrees F. 2. Uncontrollable pain. 3. Excessive bleeding. 4. Persistent nausea and vomiting. 5. Medication intolerance (nausea, vomiting or rash). * For nausea and vomiting use only clear liquids such as: tea, soda, bouillon until nausea subsides, then gradually increase diet as tolerated. * If you have any concerns or questions, call your surgeon's office. If physician is unavailable and it is an emergency, call 911 or go to the nearest emergency room. . Instructions / Follow-Up Instructions / Follow-Up ACTIVITY RECOMMENDATIONS: * Light activities * You may walk outside, read, watch television. * Mild irritation and blurred vision are common for the first few days, redness around the white part of the eye is common. MEDICATIONS: Resume previous medications unless instructed otherwise by your surgeon. Eye drops (today and tomorrow): Polytrim - one drop in operative eye every 2 hours while awake Prednisolone 1% - one drop in operative eye every 2 hours while awake Ilevro - one drop operative eye 1 times daily SPECIAL CARE INSTRUCTIONS: * If any problems or concerns, please call Dr. Montyoa's office at . * Keep plastic shield taped over eye to sleep at night. * Keep plastic shield taped over eye except to administer eye drops. * Keep plastic shield on until office visit the following day. FOLLOW UP VISIT: Follow-up with Dr. Montoya in the [place] office as scheduled. If not already scheduled, please call the office at . Diet Recommendations Home Diet: resume previous diet Procedures Procedures Performed: Left Cataract Phacoemulsification With Intraocular Lens Implant Pending Studies Studies pending at discharge: no Medical Emergencies . Who to Call and When: Medical Emergencies: If at any time you feel your situation is an emergency, please call 911 immediately. . Non-Emergent Contact Non-Emergency issues call your: Variety Performer . . "Provider Documentation" section prepared by Joseph Montoya. .
--- NOTE | 2016-12-28 09:18 | Anesthesia Progress Nt - [facility] ---
Anesthesia Post Op Note Date & Time Dec 28, 2016 at 09:18 Vital Signs Pain Intensity: 0 Vital Signs Past 12 Hours Date Time Temp Pulse Resp B/P (MAP) Pulse Ox O2 Delivery O2 Flow Rate FiO2 12/28/16 07:42 37.5 102 20 172/97 (122) 96 Room Air Notes Mental Status: alert / awake / arousable, participated in evaluation Pt Amnestic to Procedure: Yes Nausea / Vomiting: adequately controlled Pain: adequately controlled Airway Patency, RR, SpO2: stable & adequate BP & HR: stable & adequate Hydration State: stable & adequate Anesthetic Complications: no major complications apparent
--- NOTE | 2016-12-28 09:19 | [facility] Operative Report ---
Operative Report Operative Date Dec 28, 2016. Pre-Operative Diagnosis Left Eye Cataract Post-Operative Diagnosis same Procedure(s) Performed Left Cataract Phacoemulsification With Intraocular Lens Implant Surgeon Dr. Jackson Montoya Centrifugal Chiller Technician Surgeon(s) 0 Estimated Blood Loss 0 Findings cataract left eye Fluids (cc crystalloids) see anesthesia record Specimens none Drains none Anesthesia local with sedation Complication(s) None Disposition Recovery Room / PACU Implants mx60 25.0 Indications decreased vision left eye Description of Procedure After informed consent was obtained in the holding area the patient was wheeled back to the operating room where cardiac monitoring leads and oxygen by nasal cannula was administered by Anesthesia. Gentle IV sedation was given, and the patient's left eye was prepped and draped in usual sterile fashion. A wire lid speculum was placed into the left eye and the operating microscope was swung into position. Using 0.12 forceps and a Supersharp blade a paracentesis port was made 2 o'clock hours away from the 3 o'clock position of the patient's left eye. 1% non-preserved Lidocaine was then injected into the anterior chamber for anesthesia. A 2.0 mm keratotome blade was then used to make a shelved clear corneal incision at the 3 o'clock position of the left eye. Amvisc was injected into the anterior chamber and a cystotome and Utrata forceps were used to perform a curvilinear capsulorrhexis. BSS on a hydrodissection cannula was used to hydrodissect the lens nucleus away from the capsular bag. The phacoemulsification handpiece was then used in a stop and chop fashion to remove the lens nucleus. The irrigation and aspiration handpiece was then used to remove the residual cortical material. Amvisc was injected into the capsular bag and anterior chamber and a [employer]ch [employer] Lomb MX60 25.0 Diopter intraocular lens was injected into the capsular bag. Irrigation and aspiration handpiece was used to remove the residual viscoelastic material. The wounds were hydrated and noted to be watertight. The wire lid speculum was removed from the eye. Vigamox, Brimonidine, and TobraDex ointment were placed on the eye and it was shielded. It should be noted that EndoCoat was used extensively during the case to protect the cornea endothelium. DISPOSITION: The patient tolerated the procedure well and was wheeled to the post anesthesia care unit in stable condition. I attest to the content of the Intraoperative Record and any orders documented therein. Any exceptions are noted below. I attest to the content of the Intraoperative Record and any orders documented therein. Any exceptions are noted below.
[2016-12-28 09:20] VITALS: TEMP 37.4
[2016-12-28 09:41] VITALS: BP 148/90; PULSE 97; O2SAT 96
== END | disposition home or self-care (01) ==
LOC: X.SURG 07:31
PROVIDERS: ATTEND Ophthalmology
DX: H25.12 Age-related nuclear cataract, left eye (principal); I10 Essential (primary) hypertension; H40.059 Ocular hypertension, unspecified eye; E11.9 Type 2 diabetes mellitus without complications; Z90.49 Acquired absence of other specified parts of digestive tract

== ENCOUNTER → 2017-06-02 | Outpatient (CLI) | payer OTHER ==
[~2017-06-02] MED LIST changes: -500ML BSS 0.3ML EPI 1:1000PF IRRIG ONE; -ACETAMINOPHEN 325 MG TAB PO PRN; -AMVISC PLUS 0.8ML SYRINGE INT OCU ONE; -ATROPINE SULFATE 0.1 MG/ML 5ML SYR IV PRN; -BRIMONIDINE TART 0.2% OP SOLN PER DROP CHARGE ONE; -BSS FLUSH ONE; -ENDOCOAT 0.85ML SYRINGE INT OCU ONE; -EpHEDrine SULFATE INJ 50 MG/ML AMP IV PRN; -EpINEphrine INJ 1MG/ML AMP 1 MG/ML AMP ONE; -LACTATED RINGER'S 1000ML 500 ML IV SCH; -LIDOCAINE 4% OP SOLN DROP CHARGE ONE; -LIDOCAINE 4% OP SOLN DROP CHARGE OPL SCH; -LIDOCAINE HCL 1% MPF 2 ML VIAL ONE; -LPT/20 PO; +LPT20 PO; -MIDAZOLAM HCL 1 MG/ML 2ML VIAL ONE; -MOXIFLOXACIN OPH SOLN PER DROP CHARGE ONE; -POVIDONE-IODINE OP SOLN 30 ML BTL ONE; -PROPARACAINE 0.5% OP SOLN PER DROP CHARGE OPL SCH; -TOBRAMYCIN/DEXAMETHASONE OPH OINT PER APPLN CHARGE ONE
[2017-06-02 13:23] LABS: BASO % 0.5 %; BASO ABS # 0.04 K/uL (0-0.2); EOS % 1.8 %; EOS ABS # 0.15 K/uL (0-0.5); HEMATOCRIT 44.3 % (37-47); HEMOGLOBIN 15.4 g/dL (12.0-16.0); IG# 0.03 K/uL (0.00-0.02); LYMPH % 26.9 %; LYMPH ABS # 2.19 K/uL (1.2-3.4); MEAN CELL VOLUME 85.9 fL (80-100); MEAN CORPUSCULAR HEMOGLOBIN 29.8 pg (25-34); MEAN CORPUSCULAR HGB CONC 34.8 g/dl (32-36); MEAN PLATELET VOLUME 9.1 fL (7.4-10.4); MONO % 6.9 %; MONO ABS # 0.56 K/uL (0.11-0.59); NEUT % 63.5 %; NEUT ABS # 5.18 K/uL (1.4-6.5); PLATELET COUNT 294 K/uL (130-400); RED CELL DISTRIBUTION WIDTH CV 12.7 % (11.5-14.5); RED CELL DISTRIBUTION WIDTH SD 39.8 fL (36.4-46.3); WHITE BLOOD COUNT 8.15 K/uL (4.8-10.8)
[2017-06-02 13:55] LABS: ALBUMIN 3.8 gm/dl (3.4-5.0); ALT/SGPT 28 U/L (12-78); BLOOD UREA NITROGEN 21 mg/dl (7-18); CALCIUM 9.2 mg/dl (8.5-10.1); CARBON DIOXIDE 32 mmol/L (21-32); CHOLESTEROL 262 mg/dl (0-200); CREATININE 1.13 mg/dl (0.60-1.20); GLUCOSE 119 mg/dl (70-99); POTASSIUM 3.4 mmol/L (3.5-5.1); SODIUM 137 mmol/L (136-145)
[2017-06-02 14:05] LABS: ALKALINE PHOSPHATASE 76 U/L (45-117); AST/SGOT 16 U/L (15-37); TOTAL PROTEIN 7.6 gm/dl (6.4-8.2)
[2017-06-03 07:31] LABS: HEMOGLOBIN A1C 5.9 % (4.5-5.6)
== END | disposition home or self-care (01) ==
LOC: C.LABBC 10:29
PROVIDERS: ATTEND Internal Medicine Geriatric Medicine
DX: I12.9 Hypertensive chronic kidney disease with stage 1 through stage 4 chronic kidney disease, or unspecified chronic kidney disease (principal); G62.9 Polyneuropathy, unspecified; R26.9 Unspecified abnormalities of gait and mobility; N18.9 Chronic kidney disease, unspecified; E11.29 Type 2 diabetes mellitus with other diabetic kidney complication; E04.2 Nontoxic multinodular goiter

== ENCOUNTER → 2017-08-02 | Outpatient (CLI) | payer OTHER ==
[~2017-08-02] MED LIST changes: +CITA20TA9 PO; +FSM70 PO; +INDSR/60 PO; +PROP1TAB PO
--- NOTE | 2017-08-02 12:57 | DIAGNOSTIC IMAGING REPORT ---
MRI ABDOMEN WITHOUT CONTRAST CLINICAL HISTORY: K86.2 PANCREATIC CYST TECHNIQUE: Imaging was performed without IV contrast enhancement. COMPARISON STUDY: 10/12/2016 FINDINGS: Images were acquired in the axial and coronal planes, without intravenous contrast. There is a 15 mm T2 bright exophytic left renal lesion, most consistent with a cyst. No splenic masses are visualized. No hepatic masses are visualized on this noncontrast study. The gallbladder is surgically absent. No adrenal lesions are visualized. There is a 17 mm cystic lesion within the pancreatic head. This remains unchanged from prior studies.. A few additional tiny cystic lesions are visualized within the pancreatic head. On a statistical basis, these lesions represent IPMNs. The common bile duct measures 8 mm. This remain similar to the prior study. IMPRESSION: 1. Stable 17 mm cystic lesion within the pancreatic head. Diagnostic considerations remain an IPMN, or mucinous cystic neoplasm Electronically signed by: Negrito Hawkins M.D. 08/02/2017 12:56 PM Dictated Date/Time: 08/02/2017 12:47 PM
== END | disposition home or self-care (01) ==
LOC: C.MRIBC 11:38
PROVIDERS: ATTEND Internal Medicine Geriatric Medicine
DX: K86.2 Cyst of pancreas (principal)

== ENCOUNTER 2017-08-04 18:10 | Inpatient (IN) | payer OTHER ==
[~2017-08-04] VITALS: Ht 154.9 cm; Wt 75.4 kg
[~2017-08-04 18:10] MED LIST changes: -CITA20TA9 PO; -FSM70 PO; -INDSR/60 PO; -PROP1TAB PO
[2017-08-04] MEDS ORDERED: LORAZEPAM 1 MG TAB SL STA (18:20)
--- NOTE | 2017-08-04 18:33 | EMERGENCY ROOM VISIT NOTE ---
History Report prepared by Nellie: Flex Sal Under the Supervision of: Dr. Yoel Dsouza D.O. First contact with patient: 18:17 Chief Complaint: MENTAL HEALTH EVALUATION Stated Complaint: ANXIETY,DEPRESSION History of Present Illness The patient is a 62 year old female who presents to the Emergency Room with complaints of an episode of suicidal ideations occurring today. The patient states she went in to see the [facility] today and started crying when she arrived. She notes that she told the Crisis Center that she was going to hurt herself with a knife and wanted help. She reports that she has been having depression and anxiety since April, when she found out that her cat had health problems. The patient states that "someone that she has depended on to live with" is moving out next month, and she notes that her family does not think that she will be able to continue living in her current apartment. She reports that she had a tour of a new apartment today and became overwhelmed as she has lived in her current apartment for her entire life and does not want to move. The patient states that she has a history of depression but has never been admitted. She notes that she takes medication for her depression. She reports that her mother also had a history of depression and has been admitted for her symptoms in the past. The patient states that she feels like running away. She also complains of pain in the back of her head. She notes that she also has a history of Leary's palsy, hypertension, hyperlipidemia, pre-diabetes, and has had a cholecystectomy, appendectomy, and cataract surgery in her right eye. She reports that she does not use alcohol or tobacco. Source of History: patient Onset: today Position: head Quality: other (suicidal ideations) Timing: other (an episode) Note: The patient also complains of pain in the back of her head. Review of Systems See HPI for pertinent positives & negatives. A total of 10 systems reviewed and were otherwise negative. Past Medical & Surgical Medical Problems: (1) Anxiety (2) Asthma, Unspecified (3) Leary's palsy (4) Cholelith W Cholecys Nec (5) Cholelithiasis Nos (6) Depression (7) Diab Addie Wo Compl, Type Ii Or Unspec Type, Not Uncntrld (8) Diverticulosis Colon (W/O Ment Of Hemorrhage) (9) Hyperlipidemia (10) Hypertension (11) Hypertension Nos (12) Pre-diabetes Surgical Problems: (1) History of right cataract surgery (2) Hx of appendectomy (3) Hx of cholecystectomy Family History Depression Social History Smoking Status: Never Smoker Alcohol Use: none Drug Use: none Marital Status: single Housing Status: lives alone Occupation Status: retired Current/Historical Medications Scheduled Alendronate Sodium (Alendronate Sodium), 70 MG PO DAILY Amlodipine (Norvasc), 5 MG PO QAM Atorvastatin (Lipitor), 20 MG PO HS Cholecalciferol (Vitamin D-3), 1,000 UNIT PO QAM Citalopram Hydrobromide (Celexa), 40 MG PO DAILY Cyanocobalamin (B-12), 1,000 MCG PO QAM Hydrochlorothiazide (Hydrochlorothiazide), 12.5 MG PO QAM Propranolol Hcl (Propranolol ER), 60 MG PO HS Scheduled PRN Acetaminophen (Tylenol), 500 MG PO BID PRN for Pain Allergies Coded Allergies: Fluoride (Verified Allergy, Intermediate, NAUSEA, STUFFED UP NOSE, 08/04/17 ) Codeine (Verified Adverse Reaction, Unknown, N&V, 08/04/17) Physical Exam Vital Signs Date Time Temp Pulse Resp B/P (MAP) Pulse Ox O2 Delivery O2 Flow Rate FiO2 08/04/17 21:59 100 18 139/89 95 08/04/17 20:13 104 18 152/87 95 Room Air 08/04/17 18:14 37.3 135 20 156/84 95 Room Air Physical Exam GENERAL: Awake and alert, very anxious, tearful. EYES: The pupils are equal, round, and reactive to light. Ptosis noted to left eye. EARS, NOSE, MOUTH AND THROAT: The nose is without any evidence of any deformity. Mucous membranes are moist tongue is midline NECK: The neck is nontender and supple. RESPIRATORY: Normal respiratory effort is noted there is no evidence of wheezing rhonchi or rales CARDIOVASCULAR: Regular rate and rhythm noted there no murmurs rubs or gallops normal S1 normal S2 GASTROINTESTINAL: The abdomen is soft. Bowel sounds are present in all quadrants. Abdomen is nontender MUSCULOSKELETAL/EXTREMITIES: There is no evidence of gross deformity full range of motion is noted in the hips and shoulders SKIN: There is no obvious evidence of any rash. There are no petechiae, pallor or cyanosis noted. Trace pedal edema bilaterally. NEUROLOGIC: Patient is awake alert and oriented x3 strength is symmetric patellar reflexes are 2+ bilaterally, left facial droop consistent with the patient's history of [place]' Palsy. PSYCH: Affect was flat, patient was very tearful and anxious, currently admitting to suicidal thoughts with plan to cut herself. Medical Decision & Procedures Laboratory Results 08/04/17 19:09 Red Blood Count 5.19, Mean Corpuscular Volume 84.0, Mean Corpuscular Hemoglobin 30.3, Mean Corpuscular Hemoglobin Concent 36.0, Mean Platelet Volume 8.8, Neutrophils (%) (Auto) 76.3, Lymphocytes (%) (Auto) 17.2, Monocytes (%) (Auto) 5.2, Eosinophils (%) (Auto) 0.6, Basophils (%) (Auto) 0.2, Neutrophils # (Auto) 8.22, Lymphocytes # (Auto) 1.85, Monocytes # (Auto) 0.56, Eosinophils # (Auto) 0.07, Basophils # (Auto) 0.02 08/04/17 19:09 Test 08/04/17 19:09 08/04/17 19:29 White Blood Count 10.77 K/uL (4.8-10.8) Red Blood Count 5.19 M/uL (4.2-5.4) Hemoglobin 15.7 g/dL (12.0-16.0) Hematocrit 43.6 % (37-47) Mean Corpuscular Volume 84.0 fL (80-100) Mean Corpuscular Hemoglobin 30.3 pg (25-34) Mean Corpuscular Hemoglobin Concent 36.0 g/dl (32-36) Platelet Count 271 K/uL (130-400) Mean Platelet Volume 8.8 fL (7.4-10.4) Neutrophils (%) (Auto) 76.3 % Lymphocytes (%) (Auto) 17.2 % Monocytes (%) (Auto) 5.2 % Eosinophils (%) (Auto) 0.6 % Basophils (%) (Auto) 0.2 % Neutrophils # (Auto) 8.22 K/uL (1.4-6.5) Lymphocytes # (Auto) 1.85 K/uL (1.2-3.4) Monocytes # (Auto) 0.56 K/uL (0.11-0.59) Eosinophils # (Auto) 0.07 K/uL (0-0.5) Basophils # (Auto) 0.02 K/uL (0-0.2) RDW Standard Deviation 37.7 fL (36.4-46.3) RDW Coefficient of Variation 12.4 % (11.5-14.5) Immature Granulocyte % (Auto) 0.5 % Immature Granulocyte # (Auto) 0.05 K/uL (0.00-0.02) Anion Gap 6.0 mmol/L (3-11) Est Creatinine Clear Calc Drug Dose 47.0 ml/min Estimated GFR () 59.7 Estimated GFR (Non- 51.5 BUN/Creatinine Ratio 14.9 (10-20) Calcium Level 9.3 mg/dl (8.5-10.1) Total Bilirubin 0.4 mg/dl (0.2-1) Direct Bilirubin 0.1 mg/dl (0-0.2) Aspartate Amino Transf (AST/SGOT) 19 U/L (15-37) Alanine Aminotransferase (ALT/SGPT) 43 U/L (12-78) Alkaline Phosphatase 93 U/L (45-117) Total Protein 7.9 gm/dl (6.4-8.2) Albumin 4.1 gm/dl (3.4-5.0) Thyroid Stimulating Hormone (TSH) 1.310 uIu/ml (0.300-4.500) Ethyl Alcohol mg/dL < 3.0 mg/dl (0-3) Urine Color YELLOW Urine Appearance CLEAR (CLEAR) Urine pH 5.5 (4.5-7.5) Urine Specific [place] 1.017 (1.000-1.030) Urine Protein TRACE (NEG) Urine Glucose (UA) NEG (NEG) Urine Ketones NEG (NEG) Urine Occult Blood NEG (NEG) Urine Nitrite NEG (NEG) Urine Bilirubin NEG (NEG) Urine Urobilinogen NEG (NEG) Urine Leukocyte Esterase SMALL (NEG) Urine WBC (Auto) 1-5 /hpf (0-5) Urine RBC (Auto) 0-4 /hpf (0-4) Urine Hyaline Casts (Auto) 1-5 /lpf (0-5) Urine Epithelial Cells (Auto) 5-10 /lpf (0-5) Urine Bacteria (Auto) NEG (NEG) Urine Test NEG (NEG) Urine Opiates Screen NEG (NEG) Urine Methadone, Qualitative NEG (NEG) Urine Barbiturates NEG (NEG) Urine Phencyclidine (PCP) Level NEG (NEG) Ur Amphetamine/Methamphetamine NEG (NEG) MDMA (Ecstasy) Screen NEG (NEG) Urine Benzodiazepines Screen NEG (NEG) Urine Cocaine Metabolite NEG (NEG) Urine Marijuana (THC) NEG (NEG) Laboratory results per my review. Medications Administered Medications (Trade) Dose Ordered Sig/Mo Route Start Time Stop Time Status Last Admin Dose Admin Lorazepam (Ativan Tab) 1 mg NOW STAT SL 08/04/17 18:20 08/04/17 18:22 DC 08/04/17 19:00 1 MG Potassium Chloride (Klor-Con M10) 20 meq NOW STAT PO 08/04/17 20:44 08/04/17 20:45 DC 08/04/17 21:01 20 MEQ ED Course 1817: The patient was evaluated in room A7. A complete history and physical examination were performed. 1819: Lorazepam 1mg SL 2043: Potassium Chloride 20meq PO 2153: Discussed the patient's case with psychiatric case management. The patient was admitted to [facility]. Medical Decision Prior records/ancillary studies reviewed. Triage Nursing notes reviewed. The patient's history was concerning for possible psychiatric disturbance. Differential diagnosis: Etiologies such as mood disorder, infection, hypoglycemia, electrolyte abnormalities, cardiac sources, intracerebral event, toxicologic, neurologic, as well as others were entertained. The patient is a 62-year-old female who presented to the emergency department for a voluntary mental health evaluation. The patient's been having problems with severe anxiety depression. She has had some significant stressors in her life recently. The patient was treated with Ativan in the emergency department. Her condition significantly improved. She was still having very significant suicidal ideation as well as depression symptoms. She was evaluated by the mental health case specialist. She was medically cleared in the emergency department. The patient was agreeable to voluntary admission and she was felt to be a good candidate for [facility]. She was admitted to [facility]. for further inpatient mental health treatment. Medication Reconcilliation Current Medication List: was personally reviewed by me Blood Pressure Screening Patient's blood pressure: Elevated blood pressure Blood pressure disposition: Elevated BP felt to be situational Impression Primary Impression: Depression Additional Impressions: Hypokalemia Suicidal ideation Scribe Attestation The scribe's documentation has been prepared under my direction and personally reviewed by me in its entirety. I confirm that the note above accurately reflects all work, treatment, procedures, and medical decision making performed by me. Departure Information Dispostion Mental Health Acute Care Referrals No Doctor, Assigned (PCP) Patient Instructions My [facility] Problem Qualifiers Primary Impression: Depression Depression Type: unspecified Qualified Codes: F32.9 - Major depressive disorder, single episode, unspecified
[2017-08-04] MEDS ORDERED: CITA20TA9 PO (19:56)
[2017-08-04] MEDS ORDERED: FSM70 PO (19:56)
[2017-08-04] MEDS ORDERED: PROP1TAB PO (19:56)
[2017-08-04 20:03] LABS: ALBUMIN 4.1 gm/dl (3.4-5.0); CALCIUM 9.3 mg/dl (8.5-10.1); CREATININE 1.14 mg/dl (0.60-1.20); POTASSIUM 3.1 mmol/L (3.5-5.1); TOTAL PROTEIN 7.9 gm/dl (6.4-8.2)
[2017-08-04 20:30] LABS: BASO % 0.2 %; BASO ABS # 0.02 K/uL (0-0.2); EOS % 0.6 %; EOS ABS # 0.07 K/uL (0-0.5); HEMATOCRIT 43.6 % (37-47); HEMOGLOBIN 15.7 g/dL (12.0-16.0); IG# 0.05 K/uL (0.00-0.02); LYMPH % 17.2 %; LYMPH ABS # 1.85 K/uL (1.2-3.4); MEAN CORPUSCULAR HEMOGLOBIN 30.3 pg (25-34); MEAN PLATELET VOLUME 8.8 fL (7.4-10.4); MONO % 5.2 %; MONO ABS # 0.56 K/uL (0.11-0.59); NEUT % 76.3 %; NEUT ABS # 8.22 K/uL (1.4-6.5); PLATELET COUNT 271 K/uL (130-400); RED CELL DISTRIBUTION WIDTH CV 12.4 % (11.5-14.5); RED CELL DISTRIBUTION WIDTH SD 37.7 fL (36.4-46.3); WHITE BLOOD COUNT 10.77 K/uL (4.8-10.8)
[2017-08-04] MEDS ORDERED: POTASSIUM CHLORIDE 10 MEQ TABCR PO STA (20:44)
[2017-08-04] MEDS ORDERED: INDSR/60 PO (21:51)
[2017-08-04 21:59] VITALS: O2SAT 95
[2017-08-04] MEDS ORDERED: PROPRANOLOL HCL 20 MG TAB PO STA (22:19)
[2017-08-04] MEDS ORDERED: ATORVASTATIN 20 MG TAB PO STA (22:19)
[2017-08-05 00:26] VITALS: BP 157/79; PULSE 108; TEMP 37.5; BMI 32.1
[2017-08-05 07:05] VITALS: BP_SYST 153; BP_SYST 154; BP_DIAS 83; BP_DIAS 90; PULSE 103; TEMP 37
[2017-08-05] MEDS ORDERED: CITALOPRAM 20 MG TAB PO SCH (09:00)
[2017-08-05] MEDS: AMLODIPINE BESYLATE 5 MG TAB PO SCH (10:10)
[2017-08-05] MEDS: HYDROCHLOROTHIAZIDE 25 MG TAB PO SCH (10:10)
[2017-08-05] MEDS: CHOLECALCIFEROL 1000 INTER.UNIT TAB PO SCH (10:10)
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
[2017-08-05 12:10] VITALS: Ht 154.9 cm; Wt 75.4 kg
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
[2017-08-05] MEDS: PROPRANOLOL HCL 60 MG LA CAP PO SCH (21:56)
[2017-08-05] MEDS: ATORVASTATIN 20 MG TAB PO SCH (21:56)
[2017-08-06 06:38] VITALS: BP_SYST 126; BP_SYST 146; BP_DIAS 76; BP_DIAS 89; PULSE 100; PULSE 101; TEMP 36.7
[2017-08-06] MEDS: AMLODIPINE BESYLATE 5 MG TAB PO SCH (08:32)
[2017-08-06] MEDS: HYDROCHLOROTHIAZIDE 25 MG TAB PO SCH (08:32)
[2017-08-06] MEDS: CHOLECALCIFEROL 1000 INTER.UNIT TAB PO SCH (08:32)
[2017-08-06] MEDS ORDERED: ACETAMINOPHEN 325 MG TAB PO PRN (08:45)
[2017-08-06] MEDS ORDERED: SODIUM CHLORIDE 0.65% NA SOLN 45 ML (OCEAN) PRN (08:45)
[2017-08-06] MEDS ORDERED: BISMUTH SUBSALICYLATE PER ML OMNICELL CHARGE PO PRN (08:45)
[2017-08-06] MEDS ORDERED: hydrOXYzine HCL 25 MG TAB PO PRN ×2 (08:45)
[2017-08-06] MEDS ORDERED: ALUMINUM/MAGNESIUM SUSP 30 ML UDC PO PRN (08:45)
[2017-08-06] MEDS ORDERED: MAGNESIUM HYDROXIDE SUSP 30 ML UDC PO PRN (08:45)
[2017-08-06] MEDS: CITALOPRAM 20 MG TAB PO SCH (09:40)
--- NOTE | 2017-08-06 10:25 | Medical Student: BHU Only ---
Psychiatric Progress Note SUBJECTIVE: The patient was seen and assessed today, and progress was reviewed with nursing. The patient reports doing "fair". Sleep was "good" and noted to be 7.5 hours by staff. Pt slept well and did not need any prn Vistaril yesterday. She reports doing much better compared to when she first came into the hospital. Pt has been pleasant and good about participating in groups. She said she found it hard coming up with things to say sometimes during the group, She currently is still very concerned about her cat Patches when she is not at home (the cousin reported yesterday that she had taken care of the cat's needs). Pt will have a family meeting where cousin will be present this afternoon. She had an EKG done yesterday due to concerns for Celexa's cardiac side effects once above 40mg and it has been determined that it would be okay to increase the dose to 60mg. Pt expressed interest in going back to the [employer] once she is discharged. She has good friends and support there. ROS: Pt's mood is better, appetite is good, and sleep is good. MSE: Appearance is that of a casually dressed female who appears her stated age. She is generally cooperative with the interview. Eye contact is normal. Motor behavior is normal. Speech: normal volume, rate, and tone. Affect: full. Mood: "fair". Thought process: goal directed Thought content: denied delusions, SI, HI (previously had thoughts of hurting herself with a knife which was one of the reasons why she came into the hospital. Cognition: Language, memory, and attention grossly intact. Intelligence is estimated to be average. Insight is estimated to be limited. Judgment is estimated to be limited. ASSESSMENT: Pt is a 62 yo F admitted for SI with hx of MDD. Currently in process of adjusting antidepressant by increasing Celexa from 40mg to 60mg. EKG performed yesterday showed QTc of 462msec, okay to increase the dose. She's been pleasant on the unit and is attending groups. PLAN: 1. Major Depressive Disorder a. Increase Celexa from 40mg to 60mg. EKG performed yesterday due to cardiac SE of Celexa (QTc prolongation) and it is okay to increase dose. b. Q15 min safety checks, encourage group participation, work on coping skills and safety plan c. Vistaril 25mg prn for anxiety and 50mg prn for insomnia d. Asked cousin to bring in pt's melatonin and cousin said she'd look for it e. Communicate with Dr. Chopra to obtain more info/hx and ensure outpt f/u 2. HTN a. Continue amlodipine, propranolol and HTCZ b. Check K+ since HCTZ may cause hypokalemic. On admission K+ was 3.1 3. Hyperlipidemia a. Continue atorvastatin Date of Service: August 06, 2017.
--- NOTE | 2017-08-06 12:15 | Psychiatric Progress Notes ---
Progress Note Date of Service August 06, 2017. Interval History 62-year-old woman admitted voluntarily with severe depression and suicidality in the setting of multiple stressors including losing her lifelong home. Chief Complaint "I haven't been this sad since I lost my father.". Subjective Patient was seen & assessed interval progress reviewed with Treatment Team. The patient says that she was doing OK this AM, but now is depressed. She doesn 't know when she will get home to see her cat, who she misses and is worried about. She reviews that she is on the wait lists for 2 other facilities, [facility] and [facility], but the wait lists are long. She doesn't like [facility] for fear of loud downtown noises, and for safety because she would be on the 3rd floor. She is tearful today, saying that she must be grieving, as sad as when she lost her father. She has done some things for herself to cope with her stress including calling [employer] to get a employee development specialist, and is willing to attend [facility] more days. She says she was supposed to start individual therapy today and is missing it because she is here. She denies having any more thoughts to cut her wrists, but remains very sad and "worried". She reports good sleep and appetite. She will have a meeting with her cousin this afternoon, and says "I hate to say this about family, but sometimes I feel worse after I have seen her.". Review of Systems Constitutional: No fever, No chills, No sweats, No weight loss, No weakness, No fatigue, No problem reported ENT: No hearing loss, No unusual epistaxis, No nasal symptoms, No sore throat, No tinnitus, No dental problems, No trouble swallowing, No problem reported Respiratory: No cough, No sputum, No wheezing, No shortness of breath, No dyspnea on exertion, No dyspnea at rest, No hemoptysis, No problem reported Cardiovascular: No chest pain, No orthopnea, No PND, No edema, No claudication , No palpitations, No problem reported Abdomen: No pain, No nausea, No vomiting, No diarrhea, No constipation, No GI bleeding, No problem reported Musculoskeletal: No joint pain, No muscle pain, No swelling, No calf pain, No problem reported Neurologic: No memory loss, No paralysis, No weakness, No numbness/tingling, No vertigo, No balance problems, No problem reported Psychiatric: + depression symptoms, + anxiety Integumentary: No rash, No itch, No new/changing skin lesions, No color change , No bleeding, No problem reported Sleep Information Total Hours of Sleep: 7.50 Meal Information Percent of Breakfast Consumed: 100 Percent of Lunch Consumed: 90 Percent of Dinner Consumed: 100 Mental Status Exam During interview pt is: alert and oriented, cooperative Appearance: appropriately dressed, appropriately groomed Eye contact is: good Motor behavior is: steady gait & station, no abnormal motor movements Speech: other (distressed, crying) Affect: mood congruent, tearful Mood is: depressed, anxious Thought process: goal directed Thought content: reality based without delusions Suicidal thought are: present, Plan: present Homicidal thoughts are: denied Hallucinations: denies auditory, denies visual Cognition: memory grossly intact, attention grossly intact, language grossly intact Intelligence estimated to be: below average Insight: impaired Judgement: impaired Impression Patient adjusting to the unit, but missing familiar surroundings and her cat. EKG showed sinus rhythm, QTc of 462 msec, so increased Celexa to 60 mg today. Will order EKG for wednesday to . Will repeat K tomorrow since on HCTZ and K of 3.1 on admission. Family meeting with cousin this afternoon. Plan (1) Major depressive disorder, recurrent severe without psychotic features 08/05 - EKG - Consider increasing Celexa to 60 mg. daily if no EKG abnormalities - Obtain OP records from Dr. Colby and coordinate care - Obtain supplemental information for patient's cousin - Vistaril prn anxiety - Patient takes melatonin prn for sleep at home. Inquire if cousin can bring in - Q 15 min checks for safety - Encourage participation in group and individual counseling 08/06 - Celexa to 60 mg. daily - EKG Wednesday to - Repeat K tomorrow as she is on HCTZ and admission K of 3.1 - Family meeting this afternoon (2) Hypertension 08/05 - Continue home meds - Monitor BP (3) Hyperlipidemia 08/05 - Continue home meds Dr. Ophelia Aguilera has personally been involved in the review of this case and development of these recommendations. Discharge / Aftercare Planning Primary Care Physician: Name: Dr Yann Guillard Appointment Notes: appointment to be scheduled as needed Psychiatrist: Name: Dr Colby [facility] Date of Appointment: August 19, 2017 Time of Appointment: 2:00pm Appointment Notes: [address] [place] [address] Therapist: Name: Nathalie Begum [facility] Date of Appointment: August 13, 2017 Time of Appointment: 10:00 am Appointment Notes: [address] [place] [address] Washroom Cleaner: Name: MATTHEW Ridley ( Blended Washroom Cleaner to be assigned ) Appointment Notes: [address] [facility] [address] [place] [address], [place] [address] Specialist: Name: Group Therapy [facility] Date of Appointment: August 11, 2017 Time of Appointment: 4:00pm Appointment Notes: [address] [facility] [place] [address] Visit Code E&M Code: 23509 Inventory Assets Strengths: Good family support, love of her cat Needs: Additional support Risk Factors Assessment : Yes /single/: Yes Higher / Fall in social status: No Health problems: Yes Mental Health Diagnoses: Yes Substance use disorders: No Previous attempt: No Family history of suicide: No Previous psychiatric stay: No Hopelessness: Yes Smoker: No Protective Factors Assessment : No Responsible for young children: No Employed: No Stable relationships: Yes Supportive family: Yes Good rapport with provider: Yes Data Vital Signs Last 24 Hrs: Date Time Temp Pulse Resp B/P (MAP) Pulse Ox O2 Delivery O2 Flow Rate FiO2 08/06/17 06:38 36.7 101 20 126/76 100 146/89 Meds Administered Last 24 Hrs: Meds Administered (Past 24Hrs) Medications (Trade) Dose Ordered Sig/Mo Route Start Time Stop Time Status Last Admin Dose Admin Lorazepam (Ativan Tab) 1 mg NOW STAT SL 08/04/17 18:20 08/04/17 18:22 DC 08/04/17 19:00 1 MG Potassium Chloride (Klor-Con M10) 20 meq NOW STAT PO 08/04/17 20:44 08/04/17 20:45 DC 08/04/17 21:01 20 MEQ Amlodipine Besylate (Norvasc Tab) 5 mg QAM PO 08/05/17 09:00 09/04/17 08:59 08/06/17 08:32 5 MG Atorvastatin Calcium (Lipitor Tab) 20 mg HS PO 08/05/17 21:00 09/04/17 20:59 08/05/17 21:56 20 MG Cholecalciferol (Vitamin D Tab) 1,000 inter.unit QAM PO 08/05/17 09:00 09/04/17 08:59 08/06/17 08:32 1,000 INTER.UNIT Citalopram Hydrobromide (celeXA TAB) 40 mg DAILY PO 08/05/17 09:00 08/06/17 08:34 DC 08/05/17 10:09 40 MG Propranolol HCl (Inderal La Cap) 60 mg HS PO 08/05/17 21:00 09/04/17 20:59 08/05/17 21:56 60 MG Hydrochlorothiazide (Hydrochlorothiazide Tab) 12.5 mg DAILY PO 08/05/17 09:00 09/04/17 08:59 08/06/17 08:32 12.5 MG Atorvastatin Calcium (Lipitor Tab) 20 mg NOW STAT PO 08/04/17 22:19 08/04/17 22:20 DC 08/04/17 22:30 20 MG Propranolol HCl (Inderal Tab) 60 mg NOW STAT PO 08/04/17 22:19 08/04/17 22:20 DC 08/04/17 22:31 60 MG Citalopram Hydrobromide (celeXA TAB) 60 mg QAM PO 08/06/17 09:00 09/05/17 08:59 08/06/17 09:40 60 MG Lab Results Last 24 Hrs: 08/04/17 19:09 Red Blood Count 5.19, Mean Corpuscular Volume 84.0, Mean Corpuscular Hemoglobin 30.3, Mean Corpuscular Hemoglobin Concent 36.0, Mean Platelet Volume 8.8, Neutrophils (%) (Auto) 76.3, Lymphocytes (%) (Auto) 17.2, Monocytes (%) (Auto) 5.2, Eosinophils (%) (Auto) 0.6, Basophils (%) (Auto) 0.2, Neutrophils # (Auto) 8.22, Lymphocytes # (Auto) 1.85, Monocytes # (Auto) 0.56, Eosinophils # (Auto) 0.07, Basophils # (Auto) 0.02 08/04/17 19:09 Test 08/04/17 19:09 08/04/17 19:29 White Blood Count 10.77 K/uL (4.8-10.8) Red Blood Count 5.19 M/uL (4.2-5.4) Hemoglobin 15.7 g/dL (12.0-16.0) Hematocrit 43.6 % (37-47) Mean Corpuscular Volume 84.0 fL (80-100) Mean Corpuscular Hemoglobin 30.3 pg (25-34) Mean Corpuscular Hemoglobin Concent 36.0 g/dl (32-36) Platelet Count 271 K/uL (130-400) Mean Platelet Volume 8.8 fL (7.4-10.4) Neutrophils (%) (Auto) 76.3 % Lymphocytes (%) (Auto) 17.2 % Monocytes (%) (Auto) 5.2 % Eosinophils (%) (Auto) 0.6 % Basophils (%) (Auto) 0.2 % Neutrophils # (Auto) 8.22 K/uL (1.4-6.5) Lymphocytes # (Auto) 1.85 K/uL (1.2-3.4) Monocytes # (Auto) 0.56 K/uL (0.11-0.59) Eosinophils # (Auto) 0.07 K/uL (0-0.5) Basophils # (Auto) 0.02 K/uL (0-0.2) RDW Standard Deviation 37.7 fL (36.4-46.3) RDW Coefficient of Variation 12.4 % (11.5-14.5) Immature Granulocyte % (Auto) 0.5 % Immature Granulocyte # (Auto) 0.05 K/uL (0.00-0.02) Anion Gap 6.0 mmol/L (3-11) Est Creatinine Clear Calc Drug Dose 47.0 ml/min Estimated GFR () 59.7 Estimated GFR (Non- 51.5 BUN/Creatinine Ratio 14.9 (10-20) Calcium Level 9.3 mg/dl (8.5-10.1) Total Bilirubin 0.4 mg/dl (0.2-1) Direct Bilirubin 0.1 mg/dl (0-0.2) Aspartate Amino Transf (AST/SGOT) 19 U/L (15-37) Alanine Aminotransferase (ALT/SGPT) 43 U/L (12-78) Alkaline Phosphatase 93 U/L (45-117) Total Protein 7.9 gm/dl (6.4-8.2) Albumin 4.1 gm/dl (3.4-5.0) Thyroid Stimulating Hormone (TSH) 1.310 uIu/ml (0.300-4.500) Ethyl Alcohol mg/dL < 3.0 mg/dl (0-3) Urine Color YELLOW Urine Appearance CLEAR (CLEAR) Urine pH 5.5 (4.5-7.5) Urine Specific Scott 1.017 (1.000-1.030) Urine Protein TRACE (NEG) Urine Glucose (UA) NEG (NEG) Urine Ketones NEG (NEG) Urine Occult Blood NEG (NEG) Urine Nitrite NEG (NEG) Urine Bilirubin NEG (NEG) Urine Urobilinogen NEG (NEG) Urine Leukocyte Esterase SMALL (NEG) Urine WBC (Auto) 1-5 /hpf (0-5) Urine RBC (Auto) 0-4 /hpf (0-4) Urine Hyaline Casts (Auto) 1-5 /lpf (0-5) Urine Epithelial Cells (Auto) 5-10 /lpf (0-5) Urine Bacteria (Auto) NEG (NEG) Urine Test NEG (NEG) Urine Opiates Screen NEG (NEG) Urine Methadone, Qualitative NEG (NEG) Urine Barbiturates NEG (NEG) Urine Phencyclidine (PCP) Level NEG (NEG) Ur Amphetamine/Methamphetamine NEG (NEG) MDMA (Ecstasy) Screen NEG (NEG) Urine Benzodiazepines Screen NEG (NEG) Urine Cocaine Metabolite NEG (NEG) Urine Marijuana (THC) NEG (NEG)
--- NOTE | 2017-08-06 15:14 | Psych Management Progress Note ---
Psychiatry Miscellaneous Date of Service: August 06, 2017. Patient seen, MS assessed. Rates mood as sad as misses her cat. Encouraged cooperation with care and treatment plan as outlined by allied health prescriber.
[2017-08-06] MEDS: PROPRANOLOL HCL 60 MG LA CAP PO SCH (21:27)
[2017-08-06] MEDS: ATORVASTATIN 20 MG TAB PO SCH (21:27)
[2017-08-07 06:26] VITALS: BP_SYST 124; BP_SYST 142; BP_DIAS 76; BP_DIAS 87; PULSE 84; PULSE 88; TEMP 36.8
--- NOTE | 2017-08-07 07:32 | Psychiatric Progress Notes ---
Progress Note Date of Service August 07, 2017. Interval History 62-year-old woman admitted voluntarily with severe depression and suicidality in the setting of multiple stressors including losing her lifelong home. Chief Complaint "They keep saying I have to move, why can't they say I need to move, I feel like I don't have any control!" Subjective Patient was seen & assessed interval progress reviewed with Nursing. Staff report she has been cooperative with care, taking meds as prescribed, and is processing her stressors with staff. She had a meeting with her cousin yesterday , and they discussed her primary stressor of having to move in October. Her cousin stated that the patient's home is going to be sold because of "unsafe living conditions in the house" and financial strain that has led to inability to keep the home in good condition. They have identified an apartment for her at [facility], which they thought would be a good fit for her as there are activities there, such as bingo and cookouts. The patient expressed anger, frustration, and hurt about having to leave her home. She was tearful on multiple occasions throughout the meeting, and recognized that she was grieving the loss of her home. She also stated that she is very close with the individual who lives below her, who has acted as a analytical data miner for her. Her cousin stated that she will remain in her home until October or November, and that her home will definitely be sold at that time. Her citalopram was increased on admission and she has a repeat EKG tomorrow. On my assessment, she says the groups are helping her, she feels supported here, but remains upset about having to move. She reports "a lot of emotions," but feels safe here, and denies intent to harm herself. Reviewed her potassium level with her, that it is still low, and will be replaced. She reports good appetite, but sleep was poor last night, she thinks because "I'm in a strange place." Review of Systems Denies pain, headache, GI symptoms. Sleep Information Total Hours of Sleep: 6.75 Meal Information Percent of Breakfast Consumed: 100 Percent of Lunch Consumed: 50 Percent of Dinner Consumed: 75 Mental Status Exam During interview pt is: alert and oriented, cooperative Appearance: appropriately dressed, appropriately groomed, disheveled Eye contact is: good Motor behavior is: steady gait & station, no abnormal motor movements Speech: other (distressed, crying) Affect: mood congruent, depressed, other (Upset over having to leave her home.) Mood is: depressed, anxious Thought process: goal directed, concrete Thought content: reality based without delusions Suicidal thought are: denied Homicidal thoughts are: denied Hallucinations: denies auditory, denies visual Cognition: memory grossly intact, attention grossly intact, language grossly intact Intelligence estimated to be: below average Insight: impaired Judgement: impaired Impression Patient feels supported on the unit, states groups are helping, and is processing her emotions over the loss of her home. EKG showed sinus rhythm, QTc of 462, and citalopram was increase to 60 mg to target mood on admission. Repeat EKG tomorrow to trend QTC. Potassium low on admission, was repleted in the ER, but remains low today. The patient continues to require inpatient treatment due to the risk for suicide if discharged prematurely. Plan (1) Major depressive disorder, recurrent severe without psychotic features 08/05 - EKG - Consider increasing Celexa to 60 mg. daily if no EKG abnormalities - Obtain OP records from Dr. Colby and coordinate care - Obtain supplemental information for patient's cousin - Vistaril prn anxiety - Patient takes melatonin prn for sleep at home. Inquire if cousin can bring in - Q 15 min checks for safety - Encourage participation in group and individual counseling 08/06 - Celexa to 60 mg. daily - EKG Wednesday to trend - Repeat K tomorrow as she is on HCTZ and admission K of 3.1 - Family meeting this afternoon with cousin who is her POA 08/07 -Continue increased dose of citalopram, and repeat EKG tomorrow to follow QTC. (2) Hypokalemia 08/07 -Potassium continues to be low, 2.9, (was 3.1 on admission yesterday, received 20mEq potassium chloride) - ordered 20 mEq dose now, spoke with hospitalist u.s. commissioner, will order 40mEq tonight and recheck tomorrow. May be chronically low due to HCTZ, may need 10-20mEq daily. If remains low will check mg as well. -Will need to f/u with PCP for ongoing management. (3) Hypertension 08/05 - Continue home meds - Monitor BP (4) Hyperlipidemia 08/05 - Continue home meds Discharge / Aftercare Planning Primary Care Physician: Name: Dr Yann Domingo Appointment Notes: appointment to be scheduled as needed Psychiatrist: Name: Dr Colby [facility] Psych Clinic Date of Appointment: August 19, 2017 Time of Appointment: 2:00pm Appointment Notes: [address] [place] [address] Therapist: Name: Nathalie Begum [facility] Psych Clinic Date of Appointment: August 13, 2017 Time of Appointment: 10:00 am Appointment Notes: [address] [place] [address], [place] [address] Marinator: Name: MATTHEW Ridley ( Blended Marinator to be assigned ) Appointment Notes: [address] [facility] [address] [place] [id number] Specialist: Name: Group Therapy [facility] Psych [facility] Date of Appointment: August 11, 2017 Time of Appointment: 4:00pm Appointment Notes: [address] [place] [address], [place] [address] Visit Code E&M Code: 63997 Inventory Assets Strengths: Good family support, love of her cat Needs: Additional support Risk Factors Assessment : Yes /single/: Yes Higher / Fall in social status: No Health problems: Yes Mental Health Diagnoses: Yes Substance use disorders: No Previous attempt: No Family history of suicide: No Previous psychiatric stay: No Hopelessness: Yes Smoker: No Protective Factors Assessment : No Responsible for young children: No Employed: No Stable relationships: Yes Supportive family: Yes Good rapport with provider: Yes Data Vital Signs Last 24 Hrs: Date Time Temp Pulse Resp B/P (MAP) Pulse Ox O2 Delivery O2 Flow Rate FiO2 08/07/17 06:26 36.8 84 18 124/76 88 142/87 Meds Administered Last 24 Hrs: Meds Administered (Past 24Hrs) Medications (Trade) Dose Ordered Sig/Mo Route Start Time Stop Time Status Last Admin Dose Admin Amlodipine Besylate (Norvasc Tab) 5 mg QAM PO 08/05/17 09:00 09/04/17 08:59 08/06/17 08:32 5 MG Atorvastatin Calcium (Lipitor Tab) 20 mg HS PO 08/05/17 21:00 09/04/17 20:59 5/18/18 21:27 20 MG Cholecalciferol (Vitamin D Tab) 1,000 inter.unit QAM PO 08/05/17 09:00 09/04/17 08:59 08/06/17 08:32 1,000 INTER.UNIT Citalopram Hydrobromide (celeXA TAB) 40 mg DAILY PO 08/05/17 09:00 08/06/17 08:34 DC 08/05/17 10:09 40 MG Propranolol HCl (Inderal La Cap) 60 mg HS PO 08/05/17 21:00 09/04/17 20:59 08/06/17 21:27 60 MG Hydrochlorothiazide (Hydrochlorothiazide Tab) 12.5 mg DAILY PO 08/05/17 09:00 09/04/17 08:59 08/06/17 08:32 12.5 MG Citalopram Hydrobromide (celeXA TAB) 60 mg QAM PO 08/06/17 09:00 09/05/17 08:59 08/06/17 09:40 60 MG Lab Results Last 24 Hrs: Last 24 Hours Test 08/07/17 07:06
[2017-08-07] MEDS: CITALOPRAM 20 MG TAB PO SCH (09:16)
[2017-08-07] MEDS: CHOLECALCIFEROL 1000 INTER.UNIT TAB PO SCH (09:18)
[2017-08-07] MEDS: AMLODIPINE BESYLATE 5 MG TAB PO SCH (09:18)
[2017-08-07] MEDS: HYDROCHLOROTHIAZIDE 25 MG TAB PO SCH (09:18)
[2017-08-07] MEDS ORDERED: POTASSIUM CHLORIDE 20 MEQ TABCR PO STA (09:37)
[2017-08-07] MEDS: PROPRANOLOL HCL 60 MG LA CAP PO SCH (21:29)
[2017-08-07] MEDS: ATORVASTATIN 20 MG TAB PO SCH (21:30)
[2017-08-07] MEDS: POTASSIUM CHLORIDE 20 MEQ TABCR PO SCH (21:30)
[2017-08-08 06:59] VITALS: BP_SYST 122; BP_SYST 132; BP_DIAS 72; BP_DIAS 81; PULSE 82; PULSE 85; TEMP 36.8
[2017-08-08] MEDS ORDERED: ALENDRONATE SODIUM 70 MG TAB PO SCH (07:30)
--- NOTE | 2017-08-08 07:43 | Psychiatric Progress Notes ---
Progress Note Date of Service August 08, 2017. Interval History 62-year-old woman admitted voluntarily with severe depression and suicidality in the setting of multiple stressors including losing her lifelong home. Chief Complaint "Well, I think I'm a little bit calmer". Subjective Patient was seen & assessed interval progress reviewed with Nursing and social work. Staff report she has been cooperative with care, talked with her cousin about the plan to move to [address]. Today she reports she is slowly improving, which she attributes to "being away from pressure and stress, being away for people who think they know what's best for me!" She remains upset about the idea of moving, stating she "needs to move" but "I don't like the phrase I have to move! It's like I have no control over my life!" She is not able to explain the options they've explored for her living situation, or the reasons that [address] has been chosen. She frequently returns to her fears and dislike of the idea of living downtown, worries about the noise, living in a building with multiple floors (feels "safer" on the 1st or 2nd floor, as that' s what she's used to). She is able to see some positives, including being near the [employer] [place] and the library. She misses her cat, and is worried about him, although she has talked to her cousin to confirm that he is doing well. She denies SI and feels safe here. She is not able to review a safety plan, returning to discuss her stresses. Review of Systems Denies pain, nausea, constipation, diarrhea, headache Sleep Information Total Hours of Sleep: 7.75 Meal Information Percent of Breakfast Consumed: 100 Percent of Lunch Consumed: 90 Percent of Dinner Consumed: 100 Mental Status Exam During interview pt is: alert and oriented, cooperative Appearance: appropriately dressed, appropriately groomed, disheveled Eye contact is: good Motor behavior is: steady gait & station, no abnormal motor movements Speech: normal in rate, rhythm & volume Affect: mood congruent, depressed, irritable Mood is: depressed, anxious Thought process: goal directed, concrete Thought content: reality based without delusions Suicidal thought are: denied Homicidal thoughts are: denied Hallucinations: denies auditory, denies visual Cognition: memory grossly intact, attention grossly intact, language grossly intact Intelligence estimated to be: below average Insight: impaired Judgement: impaired Impression Patient feels supported on the unit, mood is improving, although remains distraught over having to move. EKG showed sinus rhythm, QTc of 462, and citalopram was increase to 60 mg to target mood on admission. Following QTC. Potassium has been low started supplementation as on HCTZ, and will need f/u with PCP. The patient continues to require inpatient treatment due to the risk for suicide if discharged prematurely. Plan (1) Major depressive disorder, recurrent severe without psychotic features 08/05 - EKG - Consider increasing Celexa to 60 mg. daily if no EKG abnormalities - Obtain OP records from Dr. Colby and coordinate care - Obtain supplemental information for patient's cousin - Vistaril prn anxiety - Patient takes melatonin prn for sleep at home. Inquire if cousin can bring in - Q 15 min checks for safety - Encourage participation in group and individual counseling 08/06 - Celexa to 60 mg. daily - EKG Wednesday to trend - Repeat K tomorrow as she is on HCTZ and admission K of 3.1 - Family meeting this afternoon with cousin who is her POA 08/07 -Continue increased dose of citalopram, and repeat EKG tomorrow to follow QTC. 08/08 -EKG is normal sinus rhythm, but QTC has increased to 483. We will recheck tomorrow to determine if this is a trend, and may need to decrease citalopram or switch to a different antidepressant with lower risk of QTC prolongation -Continue to encourage the patient to process her upcoming move, and explore ways to help her acclimate to this over the next couple of months prior to making the move. She is able to identify some positive aspects of living in town. Assist her in working on her discharge safety plan, and increasing her outpatient supports. (2) Hypokalemia 08/07 -Potassium continues to be low, 2.9, (was 3.1 on admission yesterday, received 20mEq potassium chloride) - ordered 20 mEq dose now, spoke with hospitalist warehouse production worker, will order 40mEq tonight and recheck tomorrow. May be chronically low due to HCTZ, may need 10-20mEq daily. If remains low will check mg as well. -Will need to f/u with PCP for ongoing management. 08/08 -Potassium has returned to the normal range, is 3.5 today. Will order 10 mEq daily, as she is on HCTZ, and recheck prior to discharge (ordered for 2017). We will need to schedule an appointment with her PCP for ongoing monitoring and management. (3) Hypertension 08/05 - Continue home meds - Monitor BP (4) Hyperlipidemia 08/05 - Continue home meds Discharge / Aftercare Planning Primary Care Physician: Name: [facility] [place] [place] Internal Medicine - Dr Yann Domingo Appointment Notes: [address] [place] [address], [place] [address] Psychiatrist: Name: Dr Colby [facility] Psych Clinic Date of Appointment: August 19, 2017 Time of Appointment: 2:00pm Appointment Notes: [address] [place] [address] Therapist: Name: Nathalie Begum [facility] Psych [facility] Date of Appointment: August 13, 2017 Time of Appointment: 10:00 am Appointment Notes: [address] [place] [address] Analysis Reporting Developer: Name: MATTHEW Ridley ( Blended Analysis Reporting Developer to be assigned ) Appointment Notes: [address] [facility] [address] [place] [address] Specialist: Name: Group Therapy [facility] Psych [facility] Date of Appointment: August 11, 2017 Time of Appointment: 4:00pm Appointment Notes: [address] [place] [id number] Visit Code E&M Code: 60914 Inventory Assets Strengths: Good family support, love of her cat Needs: Additional support Risk Factors Assessment : Yes /single/: Yes Higher / Fall in social status: No Health problems: Yes Mental Health Diagnoses: Yes Substance use disorders: No Previous attempt: No Family history of suicide: No Previous psychiatric stay: No Hopelessness: Yes Smoker: No Protective Factors Assessment : No Responsible for young children: No Employed: No Stable relationships: Yes Supportive family: Yes Good rapport with provider: Yes Data Vital Signs Last 24 Hrs: Date Time Temp Pulse Resp B/P (MAP) Pulse Ox O2 Delivery O2 Flow Rate FiO2 08/08/17 06:59 36.8 82 18 122/72 85 132/81 Meds Administered Last 24 Hrs: Meds Administered (Past 24Hrs) Medications (Trade) Dose Ordered Sig/Mo Route Start Time Stop Time Status Last Admin Dose Admin Alendronate Sodium (Fosamax Tab) 70 mg Kamara@0730 PO 08/08/17 07:30 09/07/17 07:29 08/08/17 07:38 70 MG Citalopram Hydrobromide (celeXA TAB) 60 mg QAM PO 08/06/17 09:00 09/05/17 08:59 08/07/17 09:16 60 MG Potassium Chloride (Klor-Con Tab) 20 meq NOW STAT PO 08/07/17 09:37 08/07/17 09:40 DC 08/07/17 10:59 20 MEQ Potassium Chloride (Klor-Con Tab) 40 meq HS PO 08/07/17 22:00 09/06/17 21:59 08/07/17 21:30 40 MEQ Lab Results Last 24 Hrs: Last 24 Hours Test 08/08/17 07:38
[2017-08-08 08:19] LABS: POTASSIUM 3.5 mmol/L (3.5-5.1)
[2017-08-08] MEDS: CHOLECALCIFEROL 1000 INTER.UNIT TAB PO SCH (08:24)
[2017-08-08] MEDS: AMLODIPINE BESYLATE 5 MG TAB PO SCH (08:24)
[2017-08-08] MEDS: CITALOPRAM 20 MG TAB PO SCH (08:24)
[2017-08-08] MEDS: HYDROCHLOROTHIAZIDE 25 MG TAB PO SCH (08:24)
[2017-08-08] MEDS: PROPRANOLOL HCL 60 MG LA CAP PO SCH (20:58)
[2017-08-08] MEDS: POTASSIUM CHLORIDE 20 MEQ TABCR PO SCH (20:58)
[2017-08-08] MEDS: ATORVASTATIN 20 MG TAB PO SCH (20:58)
[2017-08-09 07:01] VITALS: BP_SYST 128; BP_SYST 136; BP_DIAS 75; BP_DIAS 86; PULSE 84; PULSE 90; TEMP 37
[2017-08-09] MEDS: AMLODIPINE BESYLATE 5 MG TAB PO SCH (08:13)
[2017-08-09] MEDS: POTASSIUM CHLORIDE 10 MEQ TABCR PO SCH (08:13)
[2017-08-09] MEDS: HYDROCHLOROTHIAZIDE 25 MG TAB PO SCH (08:14)
[2017-08-09] MEDS: CITALOPRAM 20 MG TAB PO SCH (08:14)
[2017-08-09] MEDS: CHOLECALCIFEROL 1000 INTER.UNIT TAB PO SCH (08:14)
--- NOTE | 2017-08-09 09:46 | Psychiatric Progress Notes ---
Progress Note Date of Service August 09, 2017. Interval History 62-year-old woman admitted voluntarily with severe depression and suicidality in the setting of multiple stressors including losing her lifelong home. Chief Complaint "I'm getting restless, I miss [place]!" Subjective Patient was seen & assessed interval progress reviewed with Treatment Team. Staff reports she is participating in treatment, processing her emotions about her having to move out of her apartment, and her difficulty in accepting this and moving forward. On my assessment today, she states she is "getting restless ," meaning she misses her cat, and is thinking about all the things she needs to do at home (laundry and taking care of her cat). She is hopeful to be discharged tomorrow, and says she feels better than on admission, but still isn' t sure how she will be able to manage her stressors (primarily her move). She continues to perseverate on this, repeating the same concerns (doesn't want to have to move, doesn't want to live downtown), and becomes emotional and near tears when discussing it. Although she denies suicidal thoughts today, she says she "isn't sure" how she would handle SI should it return after discharge, and is not able to review a safety plan. Again explained the concerns about her citalopram, prolonged QTc, and the need to monitor this as dose may need to be decreased. Reviewed risk of prolonged QTc and explained reasons why we are monitoring her EKGs. 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 Denies pain, GI symptoms. Sleep Information Total Hours of Sleep: 7.75 Meal Information Percent of Breakfast Consumed: 90 Percent of Lunch Consumed: 95 Percent of Dinner Consumed: 100 Mental Status Exam During interview pt is: alert and oriented, cooperative Appearance: appropriately dressed, appropriately groomed, disheveled Eye contact is: good, other (left eye shut) Motor behavior is: steady gait & station, no abnormal motor movements Speech: normal in rate, rhythm & volume Affect: mood congruent, depressed (when discussing move - briefly more emotional, near tears) Mood is: depressed (but improved from admission, athough easily overwhelmed when discussing stressors), anxious Thought process: goal directed, concrete Thought content: reality based without delusions Suicidal thought are: denied (but could not review safety plan, not sure she could be safe outside the hospital) Homicidal thoughts are: denied Hallucinations: denies auditory, denies visual Cognition: memory grossly intact, attention grossly intact, language grossly intact Intelligence estimated to be: below average Insight: impaired Judgement: impaired Impression Patient feels supported on the unit, mood is improving, although remains easily overwhelmed when discussing the need to move in a couple months, and cannot contract for safety outside the hospital. In addition, medication changes ( increased citalopram on admission) require ongoing monitoring, as although initial QTc was 462, EKG yesterday showed increase to 483, so will repeat EKG today for trend and to help determine need to decrease dose or switch SSRI. Potassium has been low, started supplementation as on HCTZ, and will need f/u with PCP. The patient continues to require inpatient treatment due to the risk for suicide if discharged prematurely. Plan (1) Major depressive disorder, recurrent severe without psychotic features 08/05 - EKG - Consider increasing Celexa to 60 mg. daily if no EKG abnormalities - Obtain OP records from Dr. Colby and coordinate care - Obtain supplemental information for patient's cousin - Vistaril prn anxiety - Patient takes melatonin prn for sleep at home. Inquire if cousin can bring in - Q 15 min checks for safety - Encourage participation in group and individual counseling 08/06 - Celexa to 60 mg. daily - EKG Wednesday to trend - Repeat K tomorrow as she is on HCTZ and admission K of 3.1 - Family meeting this afternoon with cousin who is her POA 08/07 -Continue increased dose of citalopram, and repeat EKG tomorrow to follow QTC. 08/08 -EKG is normal sinus rhythm, but QTC has increased to 483. We will recheck tomorrow to determine if this is a trend, and may need to decrease citalopram or switch to a different antidepressant with lower risk of QTC prolongation -Continue to encourage the patient to process her upcoming move, and explore ways to help her acclimate to this over the next couple of months prior to making the move. She is able to identify some positive aspects of living in town. Assist her in working on her discharge safety plan, and increasing her outpatient supports. 08/09 -EKG NSR, QTc 469. Will continue citalopram, and will need ongoing monitoring as an outpatient. -Patient may need staff assistance to work on her discharge safety plan, and should review with her cousin at discharge, as she is cognitively limited. -Coordinate with outpatient treatment team- psychiatry, therapy (group and individual at [facility]), and [facility]. Increase supports by referring for a BCM. -Spoke with Dr. Colby to review her case, medication adjustments, QTc, and discharge plan. (2) Hypokalemia 08/07 -Potassium continues to be low, 2.9, (was 3.1 on admission yesterday, received 20mEq potassium chloride) - ordered 20 mEq dose now, spoke with hospitalist yard conductor, will order 40mEq tonight and recheck tomorrow. May be chronically low due to HCTZ, may need 10-20mEq daily. If remains low will check mg as well. -Will need to f/u with PCP for ongoing management. 08/08 -Potassium has returned to the normal range, is 3.5 today. Will order 10 mEq daily, as she is on HCTZ, and recheck prior to discharge (ordered for 2017). We will need to schedule an appointment with her PCP for ongoing monitoring and management. (3) Hypertension 08/05 - Continue home meds - Monitor BP (4) Hyperlipidemia 08/05 - Continue home meds Discharge / Aftercare Planning Primary Care Physician: Name: [facility] [place] Internal Medicine - Dr Yann Domingo Appointment Notes: [address] [facility] [place] [address] Psychiatrist: Name: Dr Colby [facility] Psych Clinic Date of Appointment: August 19, 2017 Time of Appointment: 2:00pm [facility] [address] [facility] [address] Therapist: Name: Nathalie Begum [facility] Psych [facility] Date of Appointment: August 13, 2017 Time of Appointment: 10:00 am [facility]ointment Notes: [address] [facility] [address] Bottle Inspector: Name: MATTHEW Ridley ( Blended Bottle Inspector to be assigned ) Appointment Notes: [address] [facility] [address] [place] [address] Specialist: Name: Group Therapy [facility] Psych [facility] Date of Appointment: August 11, 2017 Time of Appointment: 4:00pm Appointment Notes: [address] [place] [address], [place] [address] Visit Code E&M Code: 52612 Inventory Assets Strengths: Good family support, love of her cat Needs: Additional support Risk Factors Assessment : Yes /single/: Yes Higher / Fall in social status: No Health problems: Yes Mental Health Diagnoses: Yes Substance use disorders: No Previous attempt: No Family history of suicide: No Previous psychiatric stay: No Hopelessness: Yes Smoker: No Protective Factors Assessment : No Responsible for young children: No Employed: No Stable relationships: Yes Supportive family: Yes Good rapport with provider: Yes Data Vital Signs Last 24 Hrs: Date Time Temp Pulse Resp B/P (MAP) Pulse Ox O2 Delivery O2 Flow Rate FiO2 08/09/17 07:01 37.0 90 20 128/75 84 136/86 Meds Administered Last 24 Hrs: Meds Administered (Past 24Hrs) Medications (Trade) Dose Ordered Sig/Mo Route Start Time Stop Time Status Last Admin Dose Admin Alendronate Sodium (Fosamax Tab) 70 mg Kamara@0730 PO 08/08/17 07:30 09/07/17 07:29 08/08/17 07:38 70 MG Potassium Chloride (Klor-Con Tab) 40 meq HS PO 08/07/17 22:00 08/08/17 22:00 DC 08/08/17 20:58 40 MEQ Potassium Chloride (Klor-Con M10) 10 meq DAILY PO 08/09/17 09:00 09/06/17 21:59 08/09/17 08:13 10 MEQ
--- NOTE | 2017-08-09 12:57 | Medical Student: BHU Only ---
Psychiatric Progress Note IDENTIFYING INFORMATION: Pt is a 62 yo F admitted on a 201 voluntary commitment on 08/05/2017 for SI. Hx notable for MDD. Prior to this hospitalizations, she's been dealing with multiple stressors, including a sick pet and moving out of her apartment. SUBJECTIVE: The patient was seen and assessed today, and progress was reviewed with nursing. The patient reports doing "good". Sleep was "okay". Noted to be 7.75 hours by staff. Pt slept okay and did not take any medication as sleep aid. She says she's a lot calmer today. She reported remembering having two dreams, one about an empty fire company in [facility] and one about being in a grocery store but unable to check-out because there were things on the conveyer belt. She reports that she always seems to have sleep problems on Wednesday nights. She reported feeling calmer than before and it seems like she continues to process the changes coming in her life. She mentioned [employer] as being "too perfect" and keeps thinking of other places she may be able to live at. Her two major concerns with [employer] are "strangers" and "students." She stated she knew there'd come a time when she needed to move out of her current place for safety reasons. She also mentioned to me today that another reason why she' s been stressed was that two weeks ago was the anniversary of her being dismissed from a nursing course (43 years ago). She continues to go to groups and find them helpful. Denies med SE. ROS: Pt's mood is better, appetite is good, and sleep was okay. MSE: Appearance is that of a casually dressed female who appears her stated age. She is generally cooperative with the interview. Eye contact is normal. Motor behavior is normal. Speech: normal volume, rate, and tone. Affect: full. Mood: "good". Thought process: goal directed Thought content: denied delusions, SI, HI Cognition: Language, memory, and attention grossly intact. Intelligence is estimated to be below average. Insight is estimated to be limited. Judgment is estimated to be limited. ASSESSMENT: Pt is a 62 yo F admitted for SI with hx of MDD. Today is the 4th day of her Celexa being increased to 60mg from 40mg and EKG this morning showed QTc of 469. Overall, she's been pleasant on the unit and is attending groups. PLAN: 1. Major Depressive Disorder a. Admitted to [address] [place] [address] on 201 voluntary commitment. b. Celexa 60mg. EKG performed this morning due to cardiac SE of Celexa (QTc prolongation). QTc was 469. c. Q15 min safety checks, encourage group participation, work on coping skills and safety plan d. Vistaril 25mg prn for anxiety and 50mg prn for insomnia e. Communicate with Dr. Chopra to obtain more info/hx and ensure outpt f/u 2. HTN a. Continue amlodipine, propranolol and HTCZ b. Check K+ since HCTZ may cause hypokalemic. On admission K+ was 3.1. Last checked on 08/08/2017 and was normal at 3.5 c. On 10mEq supplement daily, set up outpt management 3. Hyperlipidemia a. Continue atorvastatin 4. Medication Monitoring a. Provide outpt monitoring of QTc because of Celexa. Date of Service: August 09, 2017.
[2017-08-09] MEDS: ATORVASTATIN 20 MG TAB PO SCH (20:39)
[2017-08-09] MEDS: PROPRANOLOL HCL 60 MG LA CAP PO SCH (20:40)
[2017-08-09 20:41] VITALS: BP 169/82; PULSE 88
[2017-08-10 06:32] VITALS: BP_SYST 118; BP_SYST 143; BP_DIAS 75; BP_DIAS 82; PULSE 84; PULSE 88; TEMP 36.8
[2017-08-10 08:29] LABS: POTASSIUM 3.3 mmol/L (3.5-5.1)
[2017-08-10] MEDS: HYDROCHLOROTHIAZIDE 25 MG TAB PO SCH (08:43)
[2017-08-10] MEDS: CITALOPRAM 20 MG TAB PO SCH (08:43)
[2017-08-10] MEDS: POTASSIUM CHLORIDE 10 MEQ TABCR PO SCH (08:44)
[2017-08-10] MEDS: AMLODIPINE BESYLATE 5 MG TAB PO SCH (08:44)
[2017-08-10] MEDS: CHOLECALCIFEROL 1000 INTER.UNIT TAB PO SCH (08:44)
[2017-08-10] MEDS ORDERED: CITA40TA4 PO (09:34)
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
--- NOTE | 2017-08-10 10:22 | Medical Student: BHU Only ---
Psychiatric Progress Note IDENTIFYING INFORMATION: Pt is a 62 yo F admitted on a 201 voluntary commitment on 08/05/2017 for SI. Hx notable for MDD. Prior to this hospitalizations, she's been dealing with multiple stressors, including a sick pet and moving out of her apartment. SUBJECTIVE: The patient was seen and assessed today, and progress was reviewed with nursing. The patient reports doing "good". Sleep was "good" Pt doing well this morning and slept well. Pt attended groups yesterday and has been pleasant. She is getting discharged today and will be picked up by her cousin. She looks forward to seeing her cat again who she's been worried about throughout her time on the unit. She worked on safety plans yesterday and tells me she feels confident about being able to recognize signs that she may need help, which she listed as - crying, becoming isolated, and not wanting to attend groups to interact. Pt says she has the number for [facility] right by her phone and in two difference places in the kitchen. Pt reported that she is to be phasing group out and switching to talking with a 1-on-1 counselor. She will also continue seeing a psychiatrist and go to the [facility]. Pt recognizes there are big changes coming and wants to take small steps. ROS: Pt's mood is good, appetite is good, and sleep was good. MSE: Appearance is that of a casually dressed female who appears her stated age. She is generally cooperative with the interview. Eye contact is normal. Motor behavior is normal. Speech: normal volume, rate, and tone. Affect: full. Mood: "good". Thought process: goal directed Thought content: denied delusions, SI, HI Cognition: Language, memory, and attention grossly intact. Intelligence is estimated to be below average. Insight is estimated to be limited. Judgment is estimated to be limited. ASSESSMENT: Pt is a 62 yo F admitted on a 201 voluntary commitment for SI with hx of MDD. Today is the 5th day of her Celexa being increased to 60mg from 40mg and EKG yesterday morning showed QTc of 469. Pt has been pleasant and finds groups helpful. PLAN: 1. Major Depressive Disorder a. Admitted to [address] [place] [address] on 201 voluntary commitment. b. Celexa 60mg. EKG performed this morning due to cardiac SE of Celexa (QTc prolongation). QTc was 469. c. Q15 min safety checks, encourage group participation, work on coping skills and safety plan d. Vistaril 25mg prn for anxiety and 50mg prn for insomnia e. Communicate with Dr. Colby and ensure outpt f/u 2. HTN a. Continue amlodipine, propranolol and HTCZ b. Check K+ since HCTZ may cause hypokalemic. On admission K+ was 3.1. Last checked on 08/08/2017 and was normal at 3.5 c. On 10mEq potassium chloride supplement daily, ensure outpt management 3. Hyperlipidemia a. Continue atorvastatin 4. Medication Monitoring a. Provide outpt monitoring of QTc because of Celexa. Date of Service: August 10, 2017.
== END 2017-08-10 12:10 | disposition home or self-care (01) | DRG 885 ==
LOC: C.EDB 18:11 → C.MHU 21:28
PROVIDERS: ADMIT Psychiatry & Neurology Psychiatry; ATTEND Psychiatry & Neurology Psychiatry
DX: F33.2 Major depressive disorder, recurrent severe without psychotic features (principal); R45.851 Suicidal ideations; E87.6 Hypokalemia; F41.9 Anxiety disorder, unspecified; G51.0 Bell's palsy; I10 Essential (primary) hypertension; E78.5 Hyperlipidemia, unspecified; J45.909 Unspecified asthma, uncomplicated; R73.03 Prediabetes; Z51.81 Encounter for therapeutic drug level monitoring; Z79.899 Other long term (current) drug therapy; Z86.69 Personal history of other diseases of the nervous system and sense organs; Z88.5 Allergy status to narcotic agent; Z88.8 Allergy status to other drugs, medicaments and biological substances; Z81.8 Family history of other mental and behavioral disorders